=== PATIENT | male | born 1955 | race Caucasian/White ===

== ENCOUNTER → 2017-05-05 | Outpatient (CLI) | payer SELFPAY ==
[2017-05-05 07:21] LABS: Basophils % (A) 1 %; CH 33.6; CHCM 34.2; Eosinophils # (A) 0.3 k/uL (0-0.7); Eosinophils % (A) 3 %; HCT 50.8 % (39.0-53.0); HDW 2.87; HGB 16.4 gm/dL (13.0-17.5); Luc # (Auto) 0.15; Luc % (Auto) 2; Lymphocytes # (A) 1.5 k/uL (1.0-4.8); Lymphocytes % (A) 15 %; MCHC 32.3 g/dL (31.0-37.0); MCV 99.1 fL (80.0-100.0); Macrocytosis Slight; Mean Platelet Volume 7.4; Monocytes # (A) 0.6 k/uL (0-1.0); Monocytes % (A) 6 %; Neutrophils # (A) 7.2 k/uL (1.3-7.7); Neutrophils % (A) 75 %; RBC 5.12 m/uL (4.30-5.90); RDW 15.1 % (11.5-15.5); WBC 9.7 k/uL (3.8-10.6)
[2017-05-05 08:05] LABS: ALT 55 U/L (21-72); AST 30 U/L (17-59); Alkaline Phosphatase 71 U/L (38-126); Anion Gap 10 mmol/L; Blood Urea Nitrogen 22 mg/dL (9-20); Calcium 9.3 mg/dL (8.4-10.2); Carbon Dioxide 26 mmol/L (22-30); Chloride 106 mmol/L (98-107); Cholesterol 166 mg/dL (<200); Creatine Kinase 58 U/L (55-170); Glucose 169 mg/dL (74-99); HDL Cholesterol 36 mg/dL (40-60); Non-African American GFR(MDRD) >60 (>60 ml/min/1.73 sqM); Sodium 142 mmol/L (137-145); Total Protein 7.3 g/dL (6.3-8.2)
== END | disposition home or self-care (01) ==
LOC: LABWHC1 07:05
PROVIDERS: ATTEND Family Medicine
DX: E78.5 Hyperlipidemia, unspecified (principal); E11.9 Type 2 diabetes mellitus without complications
CPT/HCPCS: 36415; 80053; 80061; 82550; 83525; 84681; 85025

== ENCOUNTER → 2017-12-01 | Outpatient (CLI) | payer BC ==
[2017-12-01 09:00] LABS: Basophils # (A) 0.1 k/uL (0-0.2); Basophils % (A) 1 %; Eosinophils # (A) 0.2 k/uL (0-0.7); Eosinophils % (A) 2 %; HCT 49.6 % (39.0-53.0); HGB 16.3 gm/dL (13.0-17.5); Lymphocytes # (A) 1.3 k/uL (1.0-4.8); Lymphocytes % (A) 14 %; MCH 30.3 pg (25.0-35.0); MCHC 32.9 g/dL (31.0-37.0); MCV 92.1 fL (80.0-100.0); Monocytes # (A) 0.5 k/uL (0-1.0); Monocytes % (A) 6 %; Neutrophils # (A) 6.7 k/uL (1.3-7.7); Neutrophils % (A) 76 %; Platelet Count 207 k/uL (150-450); RBC 5.38 m/uL (4.30-5.90); RDW 13.8 % (11.5-15.5); WBC 8.8 k/uL (3.8-10.6)
[2017-12-01 09:57] LABS: ALT 49 U/L (21-72); AST 27 U/L (17-59); Albumin 4.4 g/dL (3.5-5.0); Alkaline Phosphatase 72 U/L (38-126); Anion Gap 15 mmol/L; Blood Urea Nitrogen 24 mg/dL (9-20); Calcium 10.1 mg/dL (8.4-10.2); Carbon Dioxide 25 mmol/L (22-30); Chloride 106 mmol/L (98-107); Cholesterol 202 mg/dL (<200); Glucose 235 mg/dL (74-99); HDL Cholesterol 34 mg/dL (40-60); Potassium 4.9 mmol/L (3.5-5.1); Sodium 146 mmol/L (137-145); Total Bilirubin 0.9 mg/dL (0.2-1.3); Total Protein 7.5 g/dL (6.3-8.2); Triglycerides 501 mg/dL (<150)
[2017-12-01 10:25] LABS: Prostate Specific Antigen 0.95 ng/mL (0.00-4.00)
[2017-12-01 19:07] LABS: Hepatitis A Antibody IgM Non-Reactive (Non-Reactive); Hepatitis B Core IgM Non-Reactive (Non-Reactive)
== END | disposition home or self-care (01) ==
LOC: LABWHC1 08:05
PROVIDERS: ATTEND Family Medicine
DX: Z00.00 Encounter for general adult medical examination without abnormal findings (principal); Z12.5 Encounter for screening for malignant neoplasm of prostate; Z11.59 Encounter for screening for other viral diseases
CPT/HCPCS: 36415; 80053; 80061; 80074; 84153; 84443; 85025

== ENCOUNTER → 2018-08-07 | Outpatient (CLI) | payer BC ==
--- NOTE | 2018-08-07 10:50 | US ---
EXAMINATION TYPE: US scrotum with doppler. Grayscale and color Doppler Duplex imaging performed of t javed scrotum. DATE OF EXAM: 08/07/2018 COMPARISON: NONE CLINICAL HISTORY: N50.89 Testicular Pain. left pain x 2 weeks then went away. Week later came back. No swelling. No injury EXAM MEASUREMENTS: TESTICLES: Right Testicle: 3.7 x 2.6 x 2.0 cm Left Testicle: 3.1 x 2.8 x 2.4 cm EPIDIDYMIS HEAD: Right Epididymis: 0.9 x 1.0 x 0.6 cm Left Epididymis: 0.9 x 1.3 x 0.7 cm Doppler performed to assess for testicular vascularity; good bilateral color flow and waveforms are s een. Presence of hydroceles: small bilateral Presence of varicoceles: no Bilateral epididymis appear heterogenous. Small bilateral scrotal fluid hydroceles are present. Satisfactory blood flow to both testicles is se en. Comparison views shows symmetric flow bilaterally. IMPRESSION: No suspicious decreased or increased blood flow to left testicle identified.
== END | disposition home or self-care (01) ==
LOC: RADUSWWP 09:54
PROVIDERS: ATTEND Physician Assistant
DX: N50.89 Other specified disorders of the male genital organs (principal)
CPT/HCPCS: 76870; 93975

== ENCOUNTER → 2018-08-31 | Outpatient (CLI) | payer BC ==
[2018-08-31 08:28] LABS: Basophils # (A) 0.1 k/uL (0-0.2); Basophils % (A) 1 %; Eosinophils # (A) 0.2 k/uL (0-0.7); Eosinophils % (A) 3 %; HCT 46.8 % (39.0-53.0); HGB 15.1 gm/dL (13.0-17.5); Lymphocytes # (A) 1.1 k/uL (1.0-4.8); Lymphocytes % (A) 13 %; MCH 30.7 pg (25.0-35.0); MCHC 32.2 g/dL (31.0-37.0); MCV 95.5 fL (80.0-100.0); Mean Platelet Volume 6.4; Monocytes # (A) 0.4 k/uL (0-1.0); Monocytes % (A) 5 %; Neutrophils # (A) 6.5 k/uL (1.3-7.7); Neutrophils % (A) 76 %; Platelet Count 191 k/uL (150-450); RDW 13.8 % (11.5-15.5); WBC 8.5 k/uL (3.8-10.6)
[2018-08-31 17:07] LABS: Albumin 4.2 g/dL (3.80-4.90); Albumin/Globulin Ratio 1.75 (1.20-2.10); Anion Gap 7.4 mmol/L (4.00-12.00); Calcium 9.3 mg/dL (8.7-10.3); Carbon Dioxide 28.6 mmol/L (21.6-31.8); Globulin 2.4 g/dL (1.6-3.3); LDL Cholesterol,Calculated 57.8 mg/dL (0.0-131.0); Potassium 4.6 mmol/L (3.5-5.5); Total Bilirubin 0.9 mg/dL (0.2-1.2); Total Protein 6.6 g/dL (6.2-8.2); VLDL Calculation 69.2 mg/dL (5.00-40.00)
== END | disposition home or self-care (01) ==
LOC: LABWHC1 08:03
PROVIDERS: ATTEND Family Medicine
DX: E78.5 Hyperlipidemia, unspecified (principal)
CPT/HCPCS: 36415; 80053; 80061; 82550; 85025

== ENCOUNTER → 2019-01-18 | Outpatient (CLI) | payer BC ==
[2019-01-18 08:55] LABS: Basophils % (A) 1 %; Eosinophils # (A) 0.2 k/uL (0-0.7); Eosinophils % (A) 2 %; HCT 44.2 % (39.0-53.0); HGB 14.3 gm/dL (13.0-17.5); Lymphocytes # (A) 1.3 k/uL (1.0-4.8); Lymphocytes % (A) 15 %; MCH 30.7 pg (25.0-35.0); MCHC 32.4 g/dL (31.0-37.0); MCV 94.8 fL (80.0-100.0); Mean Platelet Volume 7.3; Monocytes # (A) 0.6 k/uL (0-1.0); Monocytes % (A) 6 %; Neutrophils # (A) 6.6 k/uL (1.3-7.7); Neutrophils % (A) 75 %; Platelet Count 195 k/uL (150-450); RBC 4.66 m/uL (4.30-5.90); RDW 15.1 % (11.5-15.5); WBC 8.8 k/uL (3.8-10.6)
[2019-01-18 16:53] LABS: Albumin 4.2 g/dL (3.80-4.90); Albumin/Globulin Ratio 1.75 (1.60-3.17); Anion Gap 6.5 mmol/L (4.00-12.00); Calcium 9.6 mg/dL (8.7-10.3); Carbon Dioxide 27.5 mmol/L (21.6-31.8); Globulin 2.4 g/dL (1.6-3.3); LDL Cholesterol,Calculated 56.2 mg/dL (0.0-131.0); Potassium 4.7 mmol/L (3.5-5.5); Total Bilirubin 0.9 mg/dL (0.2-1.2); Total Protein 6.6 g/dL (6.2-8.2); VLDL Calculation 50.8 mg/dL (5.00-40.00)
== END ==
LOC: LABWHC1 08:03
PROVIDERS: ATTEND Family Medicine
DX: E78.5 Hyperlipidemia, unspecified (principal); Z12.5 Encounter for screening for malignant neoplasm of prostate
CPT/HCPCS: 80061; 80053; 82550; 85025; 36415; G0103

== ENCOUNTER → 2021-02-01 | Outpatient (CLI) | payer MEDICARE ==
--- NOTE | 2021-02-01 15:34 | US ---
EXAMINATION TYPE: US kidneys/renal and bladder DATE OF EXAM: 02/01/2021 COMPARISON: US 01/12/14 CLINICAL HISTORY: N18.32 stage 3b chronic kidney disease. EXAM MEASUREMENTS: Right Kidney: 10.5 x 5.8 x 4.9 cm Left Kidney: 12.5 x 6.4 x 5.3 cm Post Void Residual Volume: 164.5 mL Right Kidney: No hydronephrosis or masses seen, small lateral cyst = 1.6 x 1.4 x 0.9 cm Left Kidney: No hydronephrosis or masses seen Bladder: wnl Bilateral Jets seen: Yes Normal Post Void Residual: No There is no evidence for hydronephrosis at this point in time. No nephrolithiasis is seen. No ellen s are identified. The urinary bladder is anechoic. Bilateral ureteral jets are seen. Patient tried, but unable to void. IMPRESSION: Likely right renal cyst.
== END | disposition home or self-care (01) ==
LOC: RADUSWWP 14:44
PROVIDERS: ATTEND Internal Medicine
DX: N18.32 Chronic kidney disease, stage 3b (principal)
CPT/HCPCS: 76770

== ENCOUNTER → 2022-04-12 | Outpatient (CLI) | payer MEDICARE ==
--- NOTE | 2022-04-12 10:30 | XR ---
EXAMINATION TYPE: XR bone survey complete DATE OF EXAM: 04/12/2022 COMPARISON: NONE HISTORY: MONOCLONAL GAMMOPATHY Bony calvarium : 2 views of the bony calvarium demonstrate. Hyperostosis noted. No definite intraoss eous lesion Spine: Two views of the cervical, thoracic and lumbar spines are submitted. There is hypertrophic an d degenerative changes of the cervical, thoracic and lumbar spine. Retrolisthesis of the millimeters C4 relative to C5. Multilevel facet arthropathy. Large osteophyte on the left L3-L4 and hypertrophic spurring seen throughout the lumbar spine PELVIS: Single view of the pelvis demonstrates. Severe degenerative changes lower lumbar spine. Ther e is moderate severe arthropathy and is correlated with femoral acetabular. No osseous lesions seen. Soft tissue calcifications noted. Spina bifida occulta of the coccyx noted. UPPER EXTREMITIES: Two views of the upper extremities. Calcifications along the humeral head are ofte n associated with calcific tendinosis of the rotator cuff. No intraosseous lesion seen. AC joint arth ropathy noted. LOWER EXTREMITIES: 2 views of the lower extremities. There is concentric narrowing of the hip joints with hypertrophic change of the acetabulum. There is severe arthropathy of the medial compartment of the right knee. Soft tissue and vascular calcifications are noted. Suspect bilateral femoral acetabu lar impingement. Question small lucent subcentimeter lesion involving the proximal diaphysis of the l eft femur. IMPRESSION: 1. Findings suspicious for a small subcentimeter lucent lesion proximal diaphysis left femur. 2. Correlate for AC joint arthropathy at ossific tendinosis of the rotator cuff bilaterally 3. Severe hypertrophic and degenerative changes with facet arthropathy involving the cervical, thorac ic and lumbar spine report for bilateral hip arthropathy correlate for femoral acetabular impingement
== END | disposition home or self-care (01) ==
LOC: RADXRMAIN 09:29
PROVIDERS: ATTEND Internal Medicine Hematology & Oncology
DX: M47.812 Spondylosis without myelopathy or radiculopathy, cervical region (principal); M47.814 Spondylosis without myelopathy or radiculopathy, thoracic region; M47.816 Spondylosis without myelopathy or radiculopathy, lumbar region; M16.0 Bilateral primary osteoarthritis of hip; M19.011 Primary osteoarthritis, right shoulder; M19.012 Primary osteoarthritis, left shoulder
CPT/HCPCS: 77075

== ENCOUNTER → 2022-10-27 | Outpatient (CLI) | payer MEDICARE ==
--- NOTE | 2022-10-27 11:28 | US ---
EXAMINATION TYPE: US carotid duplex BILAT DATE OF EXAM: 10/27/2022 COMPARISON: NONE CLINICAL HISTORY: M85.88. TECHNIQUE: Carotid duplex ultrasound examination. Indirect Doppler criteria was utilized. FINDINGS: EXAM MEASUREMENTS: RIGHT: Peak Systolic Velocity (PSV) cm/sec ----- Right CCA: 89.7 ----- Right ICA: 92.4 ----- Right ECA: 165 ICA/CCA ratio: 1.0 RIGHT: End Diastole cm/sec ----- Right CCA: 21.1 ----- Right ICA: 25.2 ----- Right ECA: 16.5 LEFT: Peak Systolic Velocity (PSV) cm/sec ----- Left CCA: 84.9 ----- Left ICA: 130.2 ----- Left ECA: 135 ICA/CCA ratio: 1.5 LEFT: End Diastole cm/sec ----- Left CCA: 25.4 ----- Left ICA: 22.0 ----- Left ECA: 15.6 VERTEBRALS (direction of flow): Right Vertebral: Antegrade Left Vertebral: Antegrade Rhythm: Normal [employer] NOTES: Technically difficult study, patient has large thick neck. Mild velocity increase seen in bilateral ECA's and left ICA. IMPRESSION: Technically difficult exam. 1. Less than 50% stenosis of the left internal carotid artery at its origin suggested. 2. No clinically significant stenosis of the right internal carotid artery. Criteria for Assigning % of Stenosis / Diameter reduction (Estimation based on the indirect measurements of the internal carotid artery velocities (ICA PSV). 1. Normal (no stenosis)=ICA PSV < 125 cm/s: ratio < 2.0: ICA EDV<40 cm/s. 2. Less than 50% stenosis=ICA PSV < 125 cm/s: ratio < 2.0: ICA EDV<40 cm/s. 3. 50 to 69% stenosis=ICA PSV of 125 to 230 cm/s: ration 2.0 ? 4.0: ICA EDV 40-100 cm/s. 4. Greater than 70% stenosis to near occlusion= ICA PSV > 230 cm/s: ratio > 4.0: ICA EDV > 100 cm/s. 5. Near occlusion= ICA PSV velocities may be low or undetectable: variable ratio and ICA EDV. 6. Total occlusion=unable to detect flow.
== END | disposition home or self-care (01) ==
LOC: RADUSWWP 10:30
PROVIDERS: ATTEND Family Medicine
DX: I65.22 Occlusion and stenosis of left carotid artery (principal); R09.89 Other specified symptoms and signs involving the circulatory and respiratory systems
CPT/HCPCS: 93880

== ENCOUNTER → 2023-01-24 | Outpatient (CLI) | payer MEDICARE ==
--- NOTE | 2023-01-24 15:38 | US ---
EXAMINATION TYPE: US arterial LE multi level DATE OF EXAM: 01/24/2023 7:45 AM CLINICAL INDICATION: Male, 67 years old with history of I73.9 PERIPHERAL VASCULAR DISEASE, UNSPECIFIE D; PVD toe pain History of: Smoker: Current Smoker Hypertension: Yes Diabetic: Yes Hyperlipidemia: Yes TIA/CVA: No Previous Vascular Surgery: No CAD: No CA: No Vascular Ulcers: No Claudication: No Gangrene: No Doppler Waveforms: Right: Triphasic waveforms are within the popliteal and posterior tibial arteries with biphasic wavef orms in the dorsalis pedis and monophasic waveform in the digital artery. Left: Triphasic waveforms within the popliteal posterior tibial and dorsalis pedis arteries. There ap pears to be monophasic waveforms in the left digital artery. Right Brachial Pressure: 146 Left Brachial Pressure: 140 Ankle-Brachial Indices: Right: 1.29 Left: 1.24 Toe Brachial Indices: Right: 1.20 Left: 1.06 IMPRESSION: 1. No significant flow-limiting stenosis.
== END | disposition home or self-care (01) ==
LOC: RADUSWWP 07:08
PROVIDERS: ATTEND Podiatrist Foot & Ankle Surgery
DX: I73.9 Peripheral vascular disease, unspecified (principal)
CPT/HCPCS: 93923

== ENCOUNTER → 2024-02-18 | Outpatient (CLI) | payer MEDICARE ==
[2024-02-18 16:55] LABS: Basophils % (A) 0 %; Eosinophils # (A) 0.2 k/uL (0-0.7); Eosinophils % (A) 2 %; HCT 46.3 % (39.0-53.0); HGB 15.1 gm/dL (13.0-17.5); Lymphocytes # (A) 1.6 k/uL (1.0-4.8); Lymphocytes % (A) 15 %; MCHC 32.6 g/dL (31.0-37.0); Mean Platelet Volume 7.4; Monocytes # (A) 0.5 k/uL (0-1.0); Monocytes % (A) 5 %; Neutrophils # (A) 8.5 k/uL (1.3-7.7); Neutrophils % (A) 77 %; Platelet Count 219 k/uL (150-450); RBC 4.72 m/uL (4.30-5.90); RDW 14.2 % (11.5-15.5)
[2024-02-18 17:08] LABS: African American GFR (CKD) 70 (>60 ml/min/1.73 sqM); Albumin/Globulin Ratio 1.2; Alkaline Phosphatase 65 U/L (38-126); Anion Gap 6 mmol/L; Blood Urea Nitrogen 37 mg/dL (9-20); Calcium 9.7 mg/dL (8.4-10.2); Carbon Dioxide 28 mmol/L (22-30); Chloride 110 mmol/L (98-107); Globulin 3.7 g/dL; Glucose 201 mg/dL (74-99); Non-African American GFR(CKD) 60 (>60 ml/min/1.73 sqM); Sodium 144 mmol/L (137-145)
[2024-02-18 17:18] LABS: ALT 23 U/L (4-49); AST 42 U/L (17-59); Potassium 4.8 mmol/L (3.5-5.1)
[2024-02-18 17:19] LABS: Albumin 4.6 g/dL (3.5-5.0); Total Protein 8.3 g/dL (6.3-8.2)
--- NOTE | 2024-02-18 18:14 | CT ---
EXAMINATION TYPE: CT abdomen pelvis w con DATE OF EXAM: 02/18/2024 COMPARISON: None INDICATION: LLQ abdominal pain x 2 weeks DLP: 1627.8 mGycm, Automated exposure control for dose reduction was used. CONTRAST: 80 mL of Isovue 300. Study performed without Oral Contrast TECHNIQUE: Axial images were obtained from above the diaphragm to the pubic rami in the axial plane a t 5 mm thick sections. Reconstructed images are reviewed on the computer in the coronal plane. Lanette pheral edges of the lower abdomen and pelvis extend out of the [id number] FINDINGS: Limited CT sections are obtained the lung bases. The lung bases are clear. CT ABDOMEN: Liver: Multiple cysts superiorly scattered throughout the liver. The largest near the tip of the righ t lobe of the liver measures 4.5 cm. Spleen: Normal Pancreas: Normal Adrenal glands: The adrenal glands are normal. Gallbladder: Not visualized Kidneys: No masses are evident. No hydronephrosis is present. Small cortical renal cysts are presen t on the right delayed images were obtained through the kidneys. Aorta: Vascular calcification is within the aorta. Inferior vena cava: Normal. CT PELVIS: Paraumbilical hernia containing mesenteric fat is present. This has an opening of 2.3 cm. Loops of bowel within the abdomen and pelvis are normal. This study is lateral contrast limits tabitha wel evaluation. Appendix: Normal as visualized. Urinary bladder: Normal. Genitourinary structures: Prostate is prominent. Osseous structures: No suspicious lytic or sclerotic lesions. Endplate degenerative changes are throu gh the lumbar spine. There is degenerative disc changes within the lower thoracic spine. IMPRESSION: 1. Hepatic cysts. 2. Couple of small cortical renal cysts right kidney. 3. Periumbilical fat-containing hernia 4. No suspicious abnormalities to account for left lower quadrant pain1
== END | disposition home or self-care (01) ==
LOC: RADCTMAIN 15:57
PROVIDERS: ATTEND Family Medicine
DX: K76.89 Other specified diseases of liver (principal); N28.1 Cyst of kidney, acquired; K46.9 Unspecified abdominal hernia without obstruction or gangrene
CPT/HCPCS: 80053; 85025; 74177; 36415; Q9967

== ENCOUNTER 2024-04-23 06:35 | Day surgery (SDC) | payer MEDICARE ==
[~2024-04-23 06:35] MED LIST: LIDOCAINE 1% (10MG/ML) FOR IV START INTRADERMA PRN
[2024-04-23 07:46] VITALS: TEMP 96.8
[2024-04-23] MEDS: LACTATED RINGERS 1,000 ML IV SCH (07:48)
[2024-04-23 07:51] LABS: Glucose,Whole Blood 135 mg/dL (70-110)
[2024-04-23] MEDS: IV FLUID CONTINUATION 1,000 ML IV ONE (07:52)
[2024-04-23] MEDS ORDERED: PROPOFOL 10 MG/ML 20 ML VIAL IV ONE (07:55)
[2024-04-23] MEDS ORDERED: LIDOCAINE 1% INJ 10MG/ML (20 ML MDV) ONE (07:55)
--- NOTE | 2024-04-23 08:18 | P.PCN ---
Date of Procedure: 04/23/24 Procedure(s) Performed: Brief history: Patient is a pleasant 68-year-old white male scheduled for an elective upper endoscopy as well as colonoscopy as a part of evaluation of right-sided abdominal pain for the last 2 months duration. He has abdominal bloating, excessive belching and change in bowel habits Procedure performed: Esophagogastroduodenoscopy with biopsy Colonoscopy with snare polypectomy Preoperative diagnosis: Right-sided abdominal pain Excessive belching Abdominal bloating and change in bowel habits Anesthesia: MAC Procedure: After informed consent was obtained from the patient was brought into the endoscopy unit and IV sedation was administered by anesthesia under continuous monitoring. Initially upper endoscopy was done. The Olympus GF 160 video endoscope was inserted inserted into the mouth and esophagus intubated without any difficulty and was gradually advanced into the stomach and duodenum and carefully examined. The bulb and second part of the duodenum appeared normal. Biopsies were done from the duodenum to rule out celiac disease. The scope was then withdrawn into the stomach adequately insufflated with air and upon careful examination the antrum had moderate to severe gastritis and biopsies were done from this area. Mucosa of the body, cardia and fundus appeared normal. The scope was then withdrawn into the esophagus. The GE junction was located at 40 cm to the incisors. It appeared regular with no erythema erosions or ulcerations. Rest of the esophagus appeared normal. Patient tolerated the procedure well. At this time the patient continued to remain sedation. Initial digital rectal examination was normal. Olympus CF 160 video colonoscope was then inserted into the rectum and gradually advanced to the cecum without any difficulty. Careful examination was performed as the scope was gradually being withdrawn. The prep was excellent. The cecum, appeared normal. The ascending colon there was a 5 mm and 1 cm polyp removed by snare polypectomy. Rest of the ascending colon, transverse colon, descending colon, sigmoid colon and rectum appeared normal. In the sigmoid colon there was another 5 mm polyp removed by cold snare polypectomy. Retroflexion was performed in the rectum and grade 2 internal hemorrhoids were noted. Patient tolerated the procedure well. Impression: 1. Upper endoscopy revealed moderate to severe antral gastritis but no evidence of esophagitis or peptic ulcer disease 2. Colonoscopy revealed 5 mm and 1 cm ascending colon polyp, 5 mm sigmoid colon polyp status post snare polypectomy. Grade 2 internal hemorrhoids Recommendations: Findings of this examination were discussed with the patient as well as his family. He was advised to follow-up with the biopsy results. If the biopsy reveals adenoma, recommended repeat colonoscopy in 3 years. In the meantime he will be started on omeprazole 20 mg daily and follow antireflux measures
[2024-04-23 08:46] VITALS: BP 143/84; PULSE 63; RESP 18
== END 2024-04-23 09:00 | disposition home or self-care (01) ==
LOC: ORWHC2ENDO 06:35
PROVIDERS: ATTEND Internal Medicine Gastroenterology
DX: D12.2 Benign neoplasm of ascending colon (principal); D12.5 Benign neoplasm of sigmoid colon; K31.9 Disease of stomach and duodenum, unspecified; K64.1 Second degree hemorrhoids; K29.70 Gastritis, unspecified, without bleeding
CPT/HCPCS: 43239; 45385; 88305; 88342

== ENCOUNTER 2024-12-24 10:59 | Inpatient (IN) | payer MEDICARE ==
--- NOTE | 2024-12-24 12:14 | ED ---
General Adult HPI - General Chief complaint: Skin/Abscess/Foreign Body Stated complaint: groin wound Time Seen by Provider: 12/24/24 11:17 Source: patient Mode of arrival: ambulatory Limitations: no limitations - History of Present Illness Initial comments: 69-year-old male presents to the emergency department for evaluation of scrotal pain and swelling. Patient states that he noticed some discomfort and a lump on Sunday. He went to the walk-in clinic and was prescribed Bactrim. He has been taking this as prescribed since then. He notes that the swelling in his scrotum has gotten worse along with this there is an open wound with drainage that the reports is malodorous. He went for an outpatient ultrasound today but was unable to get the results. He states that due to the pain and the discharge he presented to the emergency department. He denies any fever but admits to chills. Denies any nausea, vomiting. Admits to urinary frequency which he states is typical for him. He is a diabetic on Farxiga - Related Data Home Medications Medication Instructions Recorded Confirmed Cholecalciferol (Vitamin D3) 125 mcg PO DAILY 04/17/24 12/24/24 [Vitamin D3 (125 MCG = 5,000 IU)] Evolocumab [Repatha Sureclick] 140 mg SQ Q30D 04/17/24 12/24/24 Furosemide [Lasix] 40 mg PO DAILY 04/17/24 12/24/24 Insulin Glargine,Hum.rec.anlog 40 units SQ DAILY 04/17/24 12/24/24 [Naga Bennett] Losartan Potassium 100 mg PO DAILY 04/17/24 12/24/24 Metoprolol Tartrate 25 mg PO BID 04/17/24 12/24/24 allopurinoL [Zyloprim] 200 mg PO HS 04/17/24 12/24/24 Acetaminophen [Tylenol Arthritis] 1,300 mg PO BID 12/24/24 12/24/24 Dapagliflozin Propanediol [Farxiga] 10 mg PO HS 12/24/24 12/24/24 Famotidine 20 mg PO HS 12/24/24 12/24/24 Omeprazole 20 mg PO HS 12/24/24 12/24/24 Sulfamethox-Tmp 800-160Mg [Bactrim 1 tab PO Q12HR 12/24/24 12/24/24 DS 800-160 mg] Tirzepatide [Mounjaro] 10 mg SQ TH 12/24/24 12/24/24 Vit C/E/Zn/Coppr/Lutein/Zeaxan 1 cap PO BID 12/24/24 12/24/24 [Preservision Areds 2 Softgel] Allergies Allergy/AdvReac Type Severity Reaction Status Date / Time No Known Allergies Allergy Verified 12/25/24 15:02 Review of Systems ROS Statement: Those systems with pertinent positive or pertinent negative responses have been documented in the HPI. ROS Other: All systems not noted in ROS Statement are negative. Past Medical History Past Medical History: Diabetes Mellitus, Hypertension Additional Past Medical History / Comment(s): skin ca; stage 3 kidney failure History of Any Multi-Drug Resistant Organisms: None Reported Past Surgical History: Cholecystectomy Additional Past Surgical History / Comment(s): left hand surg, colonoscopy Past Anesthesia/Blood Transfusion Reactions: Postoperative Nausea & Vomiting (PONV) Past Psychological History: No Psychological Hx Reported Smoking Status: Current every day smoker Past Alcohol Use History: Rare General Exam Limitations: no limitations General appearance: alert, in no apparent distress Head exam: Present: atraumatic, normocephalic, normal inspection Eye exam: Present: normal appearance, PERRL, EOMI. Absent: scleral icterus, conjunctival injection, periorbital swelling ENT exam: Present: normal exam, mucous membranes moist Neck exam: Present: normal inspection. Absent: tenderness, meningismus, lymphadenopathy Respiratory exam: Present: normal lung sounds bilaterally. Absent: respiratory distress, wheezes, rales, rhonchi, stridor Cardiovascular Exam: Present: regular rate, normal rhythm, normal heart sounds. Absent: systolic murmur, diastolic murmur, rubs, gallop, clicks Neurological exam: Present: alert, oriented X3 Psychiatric exam: Present: normal affect, normal mood Skin exam: Present: warm, dry, erythema (Erythema and edema to the scrotum, purulent drainage from the left perineum). Absent: intact, normal color Course Vital Signs 12/24/24 12/24/24 12/24/24 11:02 14:09 14:43 Temperature 98 F Pulse Rate 85 71 103 H Respiratory 18 16 16 Rate Blood Pressure 155/73 153/75 137/75 O2 Sat by Pulse 98 96 98 Oximetry 12/24/24 12/24/24 12/24/24 15:02 20:00 22:20 Temperature 98.2 F 98.6 F Pulse Rate 70 71 77 Respiratory 22 18 18 Rate Blood Pressure 140/67 156/82 172/77 O2 Sat by Pulse 95 96 96 Oximetry 12/25/24 04:59 Temperature 97.6 F Pulse Rate 71 Respiratory 19 Rate Blood Pressure 152/79 O2 Sat by Pulse 97 Oximetry Medical Decision Making - Medical Decision Making Was pt. sent in by a medical professional or institution (DAPHNEY John, WEAPONS SPECIALIST, urgent care, hospital, or custodial...) When possible be specific @ -No Did you speak to anyone other than the patient for history (EMS, parent, family, police, friend...)? What history was obtained from this source @ -No Did you review nursing and triage notes (agree or disagree)? Why? @ -I reviewed and agree with nursing and triage notes Were old charts reviewed (outside hosp., previous admission, EMS record, old EKG, old radiological studies, urgent care reports/EKG's, custodial records)? Report findings @ -I reviewed the patient's outpatient ultrasound revealing no evidence of abnormal fluid collection, findings consistent with cellulitis Differential Diagnosis (chest pain, altered mental status, abdominal pain women, abdominal pain men, vaginal bleeding, weakness, fever, dyspnea, syncope, headache, dizziness, GI bleed, back pain, seizure, CVA, palpatations, mental health, musculoskeletal)? @ -Cellulitis, abscess, Drew's gangrene, necrotizing fasciitis, this list is not all inclusive EKG interpreted by me (3pts min.). @ -None X-rays interpreted by me (1pt min.). @ -None done CT interpreted by me (1pt min.). @ -CT of the pelvis shows no evidence of acute process U/S interpreted by me (1pt. min.). @ -None done What testing was considered but not performed or refused? (CT, X-rays, U/S, lab s)? Why? @ -None What meds were considered but not given or refused? Why? @ -None Did you discuss the management of the patient with other professionals (professionals i.e. DAPHNEY John, WEAPONS SPECIALIST, lab, RT, psych nurse, aids social worker, project manager retail, teacher, money position officer, geriatric case manager)? Give summary @ -Management was discussed with [facility] who was accepting of the admission Was smoking cessation discussed for >3mins.? @ -No Was critical care preformed (if so, how long)? @ -No Were there social determinants of health that impacted care today? How? (Homelessness, low income, unemployed, alcoholism, drug addiction, transportation, low edu. Level, literacy, decrease access to med. care, skilled nursing, rehab)? @ -No Was there de-escalation of care discussed even if they declined (Discuss DNR or withdrawal of care, Hospice)? DNR status @ -No What co-morbidities impacted this encounter? (DM, HTN, Smoking, COPD, CAD, Cancer, CVA, ARF, Chemo, Hep., AIDS, mental health diagnosis, sleep apnea, morbid obesity)? @ -Diabetes Was patient admitted / discharged? Hospital course, mention meds given and [place], prescriptions, significant lab abnormalities, going to OR and other pertinent info. @ -Admitted. Patient presented the emergency department for scrotal swelling and drainage from wound. Patient underwent outpatient ultrasound earlier today revealing no evidence of fluid collection, there is findings consistent with cellulitis. Patient presented the emergency department for pain and drainage to the area. Laboratory studies obtained revealing no significant leukocytosis, No significant lactic acidosis. Mild elevation in BUN/creatinine. The patient is also hyperglycemic with a blood glucose of 245; UA shows 4+ glucose, 1+ protein, no evidence of infectious process. CT of the pelvis was obtained revealing no acute process. Patient started on IV antibiotics. He will be admitted to the hospital for continuation of this treatment. He is understanding agreeable with plan. Case discussed with [facility] who is accepting of the admission. Case discussed with Dr. Cesar Undiagnosed new problem with uncertain prognosis? @ -No Drug Therapy requiring intensive monitoring for toxicity (Heparin, Nitro, Insulin, Cardizem)? @ -No Were any procedures done? @ -No Diagnosis/symptom? @ -Scrotal cellulitis, abscess Acute, or Chronic, or Acute on Chronic? @ -Acute Uncomplicated (without systemic symptoms) or Complicated (systemic symptoms)? @ -Uncomplicated Side effects of treatment? @ -No Exacerbation, Progression, or Severe Exacerbation? @ -No Poses a threat to life or bodily function? How? (Chest pain, [place], [place], pneumonia, PE, COPD, DKA, ARF, appy, cholecystitis, CVA, Diverticulitis, Homicidal, Suicidal, threat to staff... and all critical care pts) @ -No - Lab Data Result diagrams: 12/26/24 06:07 12/26/24 06:07 Lab Results 12/24/24 12/24/24 12/24/24 Range/Units 12:48 12:48 12:48 WBC 10.02 H (4.50-10.00) 10*3/uL RBC 4.25 L (4.40-5.60) 10*6/uL Hgb 13.8 (13.0-17.0) g/dL Hct 40.3 (39.6-50.0) % MCV 94.8 (80.0-97.0) fL MCH 32.5 H (27.0-32.0) pg MCHC 34.2 (32.0-37.0) g/dL Plt Count 170 (140-440) 10*3/uL MPV 9.4 L (9.5-12.2) fL Immature Gran % (Auto) 0.5 % Neutrophils % 77.3 % Lymphocytes % 14.4 % Monocytes % 6.1 % Eosinophils % 1.3 % Basophils % 0.4 % Immature Gran # 0.05 H (0.00-0.04) 10*3/uL Neutrophils # 7.75 H (1.80-7.70) 10*3/uL Lymphocytes # 1.44 (0.90-5.00) 10*3/uL Monocytes # 0.61 (0.20-1.00) 10*3/uL Eosinophils # 0.13 (0.04-0.35) 10*3/uL Basophils # 0.04 (0.00-0.10) 10*3/uL Sodium 142 (137-145) mmol/L Potassium 4.4 (3.5-5.1) mmol/L Chloride 111 H (98-107) mmol/L Carbon Dioxide 25 (22-30) mmol/L Anion Gap 6 mmol/L BUN 34 H (9-20) mg/dL Creatinine 1.52 H (0.66-1.25) mg/dL Est GFR (CKD-EPI)AfAm 53 (>60 ml/min/1.73 sqM) Est GFR (CKD-EPI)NonAf 46 (>60 ml/min/1.73 sqM) Glucose 245 H (74-99) mg/dL Plasma Lactic Acid Clint 1.6 (0.7-2.0) mmol/L Calcium 8.9 (8.4-10.2) mg/dL Total Bilirubin 0.6 (0.2-1.3) mg/dL AST 14 L (17-59) U/L ALT 14 (4-49) U/L Alkaline Phosphatase 76 (38-126) U/L C-Reactive Protein 6.5 H (<1.0) mg/dL Total Protein 6.6 (6.3-8.2) g/dL Albumin 3.7 (3.5-5.0) g/dL Urine Color Urine Appearance (Clear) Urine pH (5.0-8.0) Ur Specific [place] (1.001-1.035) Urine Protein (Negative) Urine Glucose (UA) (Negative) Urine Ketones (Negative) Urine Blood (Negative) Urine Nitrite (Negative) Urine Bilirubin (Negative) Urine Urobilinogen (<2.0) mg/dL Ur Leukocyte Esterase (Negative) Urine RBC (0-5) /hpf Urine WBC (0-5) /hpf / Range/Units 12:48 WBC (4.50-10.00) 10*3/uL RBC (4.40-5.60) 10*6/uL Hgb (13.0-17.0) g/dL Hct (39.6-50.0) % MCV (80.0-97.0) fL MCH (27.0-32.0) pg MCHC (32.0-37.0) g/dL Plt Count (140-440) 10*3/uL MPV (9.5-12.2) fL Immature Gran % (Auto) % Neutrophils % % Lymphocytes % % Monocytes % % Eosinophils % % Basophils % % Immature Gran # (0.00-0.04) 10*3/uL Neutrophils # (1.80-7.70) 10*3/uL Lymphocytes # (0.90-5.00) 10*3/uL Monocytes # (0.20-1.00) 10*3/uL Eosinophils # (0.04-0.35) 10*3/uL Basophils # (0.00-0.10) 10*3/uL Sodium (137-145) mmol/L Potassium (3.5-5.1) mmol/L Chloride (98-107) mmol/L Carbon Dioxide (22-30) mmol/L Anion Gap mmol/L BUN (9-20) mg/dL Creatinine (0.66-1.25) mg/dL Est GFR (CKD-EPI)AfAm (>60 ml/min/1.73 sqM) Est GFR (CKD-EPI)NonAf (>60 ml/min/1.73 sqM) Glucose (74-99) mg/dL Plasma Lactic Acid Clint (0.7-2.0) mmol/L Calcium (8.4-10.2) mg/dL Total Bilirubin (0.2-1.3) mg/dL AST (17-59) U/L ALT (4-49) U/L Alkaline Phosphatase (38-126) U/L C-Reactive Protein (<1.0) mg/dL Total Protein (6.3-8.2) g/dL Albumin (3.5-5.0) g/dL Urine Color Colorless Urine Appearance Clear (Clear) Urine pH 6.0 (5.0-8.0) Ur Specific [place] 1.023 (1.001-1.035) Urine Protein 1+ H (Negative) Urine Glucose (UA) 4+ H (Negative) Urine Ketones Negative (Negative) Urine Blood Negative (Negative) Urine Nitrite Negative (Negative) Urine Bilirubin Negative (Negative) Urine Urobilinogen <2.0 (<2.0) mg/dL Ur Leukocyte Esterase Negative (Negative) Urine RBC <1 (0-5) /hpf Urine WBC 2 (0-5) /hpf Disposition Clinical Impression: Cellulitis, scrotum Disposition: ADMITTED IP TO THIS [facility] Condition: Stable Is patient prescribed a controlled substance at d/c from ED?: No
[2024-12-24] MEDS ORDERED: VANCOMYCIN IV PER PHARMACY 1 EACH MISC MISCELLANE PRN (12:40)
[2024-12-24] MEDS: LACTATED RINGERS 1,000 ML IV ONE (12:59)
[2024-12-24 13:10] LABS: Appearance,Urine Clear (Clear); Bilirubin,Urine Negative (Negative); Blood,Urine Negative (Negative); Color,Urine Colorless; Glucose,Urine (UA) 4+ (Negative); Ketones,Urine Negative (Negative); Leukocyte Esterase,Urine Negative (Negative); Nitrite,Urine Negative (Negative); Protein,Urine 1+ (Negative); RBC,Urine <1 /hpf (0-5); Specific Gravity,Urine 1.023 (1.001-1.035); Urobilinogen,Urine <2.0 mg/dL (<2.0); WBC,Urine 2 /hpf (0-5)
[2024-12-24 13:24] LABS: ALT 14 U/L (4-49); AST 14 U/L (17-59); African American GFR (CKD) 53 (>60 ml/min/1.73 sqM); Albumin 3.7 g/dL (3.5-5.0); Alkaline Phosphatase 76 U/L (38-126); Anion Gap 6 mmol/L; Blood Urea Nitrogen 34 mg/dL (9-20); Calcium 8.9 mg/dL (8.4-10.2); Carbon Dioxide 25 mmol/L (22-30); Chloride 111 mmol/L (98-107); Glucose 245 mg/dL (74-99); Non-African American GFR(CKD) 46 (>60 ml/min/1.73 sqM); Potassium 4.4 mmol/L (3.5-5.1); Sodium 142 mmol/L (137-145); Total Bilirubin 0.6 mg/dL (0.2-1.3); Total Protein 6.6 g/dL (6.3-8.2)
[2024-12-24 13:53] LABS: Basophils # (A) 0.04 10*3/uL (0.00-0.10); Basophils % (A) 0.4 %; Eosinophils # (A) 0.13 10*3/uL (0.04-0.35); Eosinophils % (A) 1.3 %; HCT 40.3 % (39.6-50.0); HGB 13.8 g/dL (13.0-17.0); Lymphocytes # (A) 1.44 10*3/uL (0.90-5.00); Lymphocytes % (A) 14.4 %; MCH 32.5 pg (27.0-32.0); MCHC 34.2 g/dL (32.0-37.0); MCV 94.8 fL (80.0-97.0); Mean Platelet Volume 9.4 fL (9.5-12.2); Monocytes # (A) 0.61 10*3/uL (0.20-1.00); Monocytes % (A) 6.1 %; Neutrophils # (A) 7.75 10*3/uL (1.80-7.70); Neutrophils % (A) 77.3 %; Platelet Count 170 10*3/uL (140-440); RBC 4.25 10*6/uL (4.40-5.60); RDW 13.4 % (11.5-14.5); WBC 10.02 10*3/uL (4.50-10.00)
[2024-12-24] MEDS: PIPERACILLIN-TAZOBACTAM 3.375 GM in SODIUM CHLORIDE 0.9% 100 ML IVPB STA (13:54)
[2024-12-24 14:04] LABS: C Reactive Protein 6.5 mg/dL (<1.0)
[2024-12-24] MEDS: VANCOMYCIN 1,500 MG in SODIUM CHLORIDE 0.9% 500 ML 500 ML IVPB ONE (15:08)
--- NOTE | 2024-12-24 15:12 | CT ---
CT pelvis with contrast HISTORY: Peroneal abscess concern for fourniers COMPARISON: CT abdomen and pelvis dated 424. TECHNIQUE: Multiple axial images of the pelvis following IV contrast inspiration. FINDINGS: There is mild prostatic hypertrophy. There is no pelvic adenopathy or mass. There is no abscess. The perianal soft tissues are normal. Visualized bowel loops are normal. No evidence of bowel obstruction. There is no free fluid in the pe lvis. CONCLUSION: 1. No acute changes within the pelvis. There is no evidence of perineal abscess. 2. Mild prostatic hypertrophy. [facility], Workstation: [facility], 12/24/2024 3:10 PM
[2024-12-24] MEDS ORDERED: ONDANSETRON 4 MG/2 ML VIAL IVP PRN (16:27)
[2024-12-24] MEDS ORDERED: NALOXONE 0.4 MG/ML 1 ML VIAL IV PRN (16:27)
[2024-12-24] MEDS ORDERED: MORPHINE SULFATE 4 MG/ML SYRINGE IV PRN (16:27)
[2024-12-24] MEDS ORDERED: HYDROcodone/APAP 5-325MG 1 EACH TAB PO PRN (17:47)
--- NOTE | 2024-12-24 18:00 | P.HPIM ---
History of Present Illness H&P Date: 12/24/24 69 year old M with PMH of DM, CKD, HTN, Gout, Gastritis, HLD presents to the ED. He reports scrotal "bubble" that started 1 week ago. The lump progressively grew to the size of his thumb over the past week. He did go to urgent care and received Bactrim which did not help his symptoms. He also underwent an US which showed concerns for cellulitis. Today, it became an open wound draining purulent discharge which prompted him to go to the ED. He denies any fever or chills, nausea or vomiting, cough, chest pain, shortness of breath, palpitations, changes in urination or bowel habits. In the ED he underwent extensive evaluation. BP 155/73, HR 85, T 98F, RR 18, 98% on RA. Labs significant for WBC 10.02, RBC 4.25, Cl 111, BUN 34, Cr 1.52, glu 245, AST 14, CRP 6.5. UA 1+ protein and 4+ glucose. CT pelvis no acute findings. Patient is started on Vancomycin and Zosyn and admitted for further workup and management. General: non toxic, no distress, appears at stated age Derm: warm, dry Head: atraumatic, normocephalic, symmetric Eyes: EOMI, no lid lag, anicteric sclera Mouth: no lip lesion, mucus membranes moist Cardiovascular: S1S2 reg, no murmur Lungs: Clear to auscultation bilaterally, no rhonchi, no rales , no accessory muscle use : Scrotal draining abscess left side with purulent discharge Ext: no gross muscle atrophy, no edema Neuro: no focal neuro deficits Psych: Alert and oriented. Based on my assessment of this patient, this patient meets a high complexity level of care. Scrotal abscess: Start Vancomycin and Zosyn. Wound culture collected with Dr. Fuchs. BLAS on CKD stage 2: Start NS at 100 cc/hr. Hold Farxiga, Losartan and Lasix for now. Repeat BMP in the AM. DM with hyperglycemia: Levemir 40 units QD. ISS with Accuchecks ACHS along with hypoglycemic precautions. Hypertension: Metoprolol 25 mg PO BID. Gout: Allopurinol 200 mg PO QHS. Gastritis: Pepcid 20 mg PO QHS. Prilosec 20 mg PO QHS. Dyslipidemia: On Repatha monthly. CODE STATUS: FULL CODE DVT Prophylaxis: Heparin GI Prophylaxis: Protonix + Pepcid Designated medical POA if patient is not able to make medical decisions for themselves: I have reviewed the following it sales consultant notes: ED note I have reviewed the results of the following tests: As above. I have ordered the following tests: As above. I have discussed the care of this patient with the following independent historian: . I have independently interpreted the following test below: I have discussed the management of this patient with the following physician: Dr. Fuchs. ED provider. Past Medical History Past Medical History: Diabetes Mellitus, Hypertension Additional Past Medical History / Comment(s): skin ca; stage 3 kidney failure History of Any Multi-Drug Resistant Organisms: None Reported Past Surgical History: Cholecystectomy Additional Past Surgical History / Comment(s): left hand surg, colonoscopy Past Anesthesia/Blood Transfusion Reactions: Postoperative Nausea & Vomiting (PONV) Past Psychological History: No Psychological Hx Reported Smoking Status: Current every day smoker Past Alcohol Use History: Rare Medications and Allergies Home Medications Medication Instructions Recorded Confirmed Type Cholecalciferol (Vitamin D3) 125 mcg PO DAILY 04/17/24 12/24/24 History [Vitamin D3 (125 MCG = 5,000 IU)] Evolocumab [Repatha Sureclick] 140 mg SQ Q30D 04/17/24 12/24/24 History Furosemide [Lasix] 40 mg PO DAILY 04/17/24 12/24/24 History Insulin Glargine,Hum.rec.anlog 40 units SQ DAILY 04/17/24 12/24/24 History [Toujeo Solostar] Losartan Potassium 100 mg PO DAILY 04/17/24 12/24/24 History Metoprolol Tartrate 25 mg PO BID 04/17/24 12/24/24 History allopurinoL [Zyloprim] 200 mg PO HS 04/17/24 12/24/24 History Acetaminophen [Tylenol Arthritis] 1,300 mg PO BID 12/24/24 12/24/24 History Dapagliflozin Propanediol [Farxiga] 10 mg PO HS 12/24/24 12/24/24 History Famotidine 20 mg PO HS 12/24/24 12/24/24 History Omeprazole 20 mg PO HS 12/24/24 12/24/24 History Sulfamethox-Tmp 800-160Mg [Bactrim 1 tab PO Q12HR 12/24/24 12/24/24 History DS 800-160 mg] Tirzepatide [Mounjaro] 10 mg SQ TH 12/24/24 12/24/24 History Vit C/E/Zn/Coppr/Lutein/Zeaxan 1 cap PO BID 12/24/24 12/24/24 History [Preservision Areds 2 Softgel] Allergies Allergy/AdvReac Type Severity Reaction Status Date / Time milk AdvReac SNEEZING,GA Verified 12/24/24 15:04 S Physical Exam Vitals: Vital Signs Temp Pulse Resp BP Pulse Ox 12/24/24 15:02 98.2 F 70 22 140/67 95 12/24/24 14:43 103 H 16 137/75 98 12/24/24 14:09 71 16 153/75 96 12/24/24 11:02 98 F 85 18 155/73 98 Intake and Output 12/24/24 12/24/24 12/24/24 06:59 14:59 22:59 Other: Weight 95.708 kg Results CBC & Chem 7: 12/24/24 12:48 12/24/24 12:48 Labs: Abnormal Lab Results - Last 24 Hours (Table) 12/24/24 12/24/24 12/24/24 Range/Units 12:48 12:48 12:48 WBC 10.02 H (4.50-10.00) 10*3/uL RBC 4.25 L (4.40-5.60) 10*6/uL MCH 32.5 H (27.0-32.0) pg MPV 9.4 L (9.5-12.2) fL Immature Gran # 0.05 H (0.00-0.04) 10*3/uL Neutrophils # 7.75 H (1.80-7.70) 10*3/uL Chloride 111 H (98-107) mmol/L BUN 34 H (9-20) mg/dL Creatinine 1.52 H (0.66-1.25) mg/dL Glucose 245 H (74-99) mg/dL AST 14 L (17-59) U/L C-Reactive Protein 6.5 H (<1.0) mg/dL Urine Protein 1+ H (Negative) Urine Glucose (UA) 4+ H (Negative)
[2024-12-24] MEDS: SODIUM CHLORIDE 0.9% 1,000 ML IV SCH (20:14)
--- NOTE | 2024-12-24 22:01 | P.CONS ---
History of Present Illness - Reason for Consult Consult date: 12/24/24 Cellulitis Requesting physician: Loida Godoy - Chief Complaint Left scrotal area pain swelling redness x 3 days - History of Present Illness Patient is a 69-year-old male with a past medical history significant for diabetes mellitus hypertension stage III kidney disease presenting to the hospital for evaluation of left groin/scrotal area swelling and redness patient mention that he noticed a lump on the left lateral side of his scrotal area for the patient did went to an urgent care and the patient has been prescribed Bactrim DS with the patient has been taking however the patient noticed to have significant swelling redness and pain to the left scrotal area describing it to be sharp moderate to severe intensity without radiation and the area started to drain with a foul-smelling material with the symptoms the patient has been brought to the hospital on arrival to the ER the patient was afebrile no fever have been called subsequently patient was tachycardic but not hypotensive or hypoxic he did have a white count of 10.02 with a left shift BUN and creatinine has been mildly elevated liver enzymes are normal urine has been negative patient did have a pelvic CT did not mention any abscess patient did have a scrotal ultrasound completed before coming to the hospital there was thickened erythematous skin without evidence for organizing fluid collection correlate for cellulitis patient has been started on vancomycin received a dose of Zosyn i nfectious disease was consulted for further management of antibiotic therapy Review of Systems Positive point and negatives has been mentioned in the HPI, complete review of systems was performed and all other systems are negative Past Medical History Past Medical History: Diabetes Mellitus, Hypertension Additional Past Medical History / Comment(s): skin ca; stage 3 kidney failure History of Any Multi-Drug Resistant Organisms: None Reported Past Surgical History: Cholecystectomy Additional Past Surgical History / Comment(s): left hand surg, colonoscopy Past Anesthesia/Blood Transfusion Reactions: Postoperative Nausea & Vomiting (PONV) Past Psychological History: No Psychological Hx Reported Smoking Status: Current every day smoker Past Alcohol Use History: Rare Medications and Allergies Home Medications Medication Instructions Recorded Confirmed Type Cholecalciferol (Vitamin D3) 125 mcg PO DAILY 04/17/24 12/24/24 History [Vitamin D3 (125 MCG = 5,000 IU)] Evolocumab [Repatha Sureclick] 140 mg SQ Q30D 04/17/24 12/24/24 History Furosemide [Lasix] 40 mg PO DAILY 04/17/24 12/24/24 History Insulin Glargine,Hum.rec.anlog 40 units SQ DAILY 04/17/24 12/24/24 History [Toumoses Solostar] Losartan Potassium 100 mg PO DAILY 04/17/24 12/24/24 History Metoprolol Tartrate 25 mg PO BID 04/17/24 12/24/24 History allopurinoL [Zyloprim] 200 mg PO HS 04/17/24 12/24/24 History Acetaminophen [Tylenol Arthritis] 1,300 mg PO BID 12/24/24 12/24/24 History Dapagliflozin Propanediol [Farxiga] 10 mg PO HS 12/24/24 12/24/24 History Famotidine 20 mg PO HS 12/24/24 12/24/24 History Omeprazole 20 mg PO HS 12/24/24 12/24/24 History Sulfamethox-Tmp 800-160Mg [Bactrim 1 tab PO Q12HR 12/24/24 12/24/24 History DS 800-160 mg] Tirzepatide [Mounjaro] 10 mg SQ TH 12/24/24 12/24/24 History Vit C/E/Zn/Coppr/Lutein/Zeaxan 1 cap PO BID 12/24/24 12/24/24 History [Preservision Areds 2 Softgel] Allergies Allergy/AdvReac Type Severity Reaction Status Date / Time milk AdvReac SNEEZING,GA Verified 12/24/24 15:04 S Physical Exam Vitals: Vital Signs Temp Pulse Resp BP Pulse Ox 12/24/24 15:02 98.2 F 70 22 140/67 95 12/24/24 14:43 103 H 16 137/75 98 12/24/24 14:09 71 16 153/75 96 12/24/24 11:02 98 F 85 18 155/73 98 Intake and Output 12/24/24 12/24/24 12/24/24 06:59 14:59 22:59 Other: Weight 95.708 kg GENERAL DESCRIPTION: Elderly male lying in bed, no distress. No tachypnea or ac cessory muscle of respiration use. HEENT: Shows Pallor , no scleral icterus. Oral mucous membrane is dry. NECK: Trachea central, no thyromegaly. LUNGS: Unlabored breathing. Clear to auscultation anteriorly. No wheeze or crackle. HEART: S1, S2, regular rate and rhythm. No loud murmur ABDOMEN: Soft, no tenderness , : Left lateral scrotal area did have significant duration and with minimal pressure foul-smelling purulent material came out which was cultured EXTREMITIES: No edema of feet. SKIN: No rash, no masses palpable. NEUROLOGICAL: The patient is awake, alert, oriented x3, mood and affect normal. Results CBC & Chem 7: 12/24/24 12:48 12/24/24 12:48 Labs: Abnormal Lab Results - Last 24 Hours (Table) 12/24/24 12/24/24 12/24/24 Range/Units 12:48 12:48 12:48 WBC 10.02 H (4.50-10.00) 10*3/uL RBC 4.25 L (4.40-5.60) 10*6/uL MCH 32.5 H (27.0-32.0) pg MPV 9.4 L (9.5-12.2) fL Immature Gran # 0.05 H (0.00-0.04) 10*3/uL Neutrophils # 7.75 H (1.80-7.70) 10*3/uL Chloride 111 H (98-107) mmol/L BUN 34 H (9-20) mg/dL Creatinine 1.52 H (0.66-1.25) mg/dL Glucose 245 H (74-99) mg/dL AST 14 L (17-59) U/L C-Reactive Protein 6.5 H (<1.0) mg/dL Urine Protein 1+ H (Negative) Urine Glucose (UA) 4+ H (Negative) Assessment and Plan (1) Scrotal abscess Current Visit: Yes Status: Acute Code(s): N49.2 - INFLAMMATORY DISORDERS OF SCROTUM SNOMED Code(s): 95304712 (2) Failure of outpatient treatment Current Visit: Yes Status: Acute Code(s): Z78.9 - OTHER SPECIFIED HEALTH STATUS SNOMED Code(s): 985977797 (3) Elevated serum creatinine Current Visit: Yes Status: Acute Code(s): R79.89 - OTHER SPECIFIED ABNORMAL FINDINGS OF BLOOD CHEMISTRY SNOMED Code(s): 746842926 Plan: 1patient presented to hospital with significant pain swelling and redness to the left scrotal area with spontaneous drainage of a foul-smelling material concerning for an abscess likely from gram-positive skin haylee gram-negative infection less likely but not excluded 2patient with elevated creatinine high risk of nephrotoxicity. 3patient will be treated with vancomycin watching his kidney function closely and will add Unasyn for gram-negative coverage while waiting for the workup to be completed. 4await urology evaluation for formal drainage of this abscess at the bedside multiple question concern answered We will follow on clinical condition and cultures to further adjust medication if needed Thank you for this consultation we will follow the patient along with you Dictation was produced using [employer] dictation software. please excuse any grammatical, word or spelling errors. Time with Patient: Greater than 30
[2024-12-24] MEDS: FAMOTIDINE 20 MG TAB PO SCH (22:37)
[2024-12-24] MEDS: allopurinoL 100 MG TAB PO SCH (22:37)
[2024-12-24] MEDS: METOPROLOL TARTRATE 25 MG TAB PO SCH (22:37)
[2024-12-24] MEDS: PANTOPRAZOLE 40 MG TABLET PO SCH (22:37)
[2024-12-25] MEDS: HEPARIN SODIUM,PORCINE 5,000 UNIT/ML 1 ML VIAL SQ SCH (02:07)
[2024-12-25 06:32] LABS: African American GFR (CKD) 54 (>60 ml/min/1.73 sqM); Anion Gap 6 mmol/L; Blood Urea Nitrogen 27 mg/dL (9-20); Calcium 8.5 mg/dL (8.4-10.2); Carbon Dioxide 24 mmol/L (22-30); Chloride 112 mmol/L (98-107); Glucose 150 mg/dL (74-99); Non-African American GFR(CKD) 47 (>60 ml/min/1.73 sqM); Potassium 3.9 mmol/L (3.5-5.1); Sodium 142 mmol/L (137-145)
[2024-12-25 08:23] LABS: Basophils # (A) 0.08 X 10*3/uL (0.00-0.10); Basophils % (A) 0.9 %; Eosinophils # (A) 0.21 X 10*3/uL (0.04-0.35); Eosinophils % (A) 2.3 %; HCT 37.7 % (39.6-50.0); HGB 12.1 g/dL (13.0-17.0); Lymphocytes # (A) 1.34 X 10*3/uL (0.90-5.00); Lymphocytes % (A) 14.8 %; MCHC 32.1 g/dL (32.0-37.0); MCV 96.7 FL (80.0-97.0); Mean Platelet Volume 9.6 FL (9.5-12.2); Monocytes # (A) 0.71 X 10*3/uL (0.20-1.00); Monocytes % (A) 7.9 %; NRBC Per 100 WBC 0 X 10*3/uL (0.00-0.01); Neutrophils # (A) 6.63 X 10*3/uL (1.80-7.70); Neutrophils % (A) 73.4 %; Platelet Count 161 X 10*3/uL (140-440); RDW 13.6 % (11.5-14.5); WBC 9.03 X 10*3/uL (4.50-10.00)
[2024-12-25 09:38] LABS: Glucose,Whole Blood 295 mg/dL (70-110)
[2024-12-25] MEDS: INSULIN GLARGINE (LANTUS) 100 UNIT/ML SYR SQ SCH (09:53)
[2024-12-25] MEDS: AMPICILLIN-SULBACTAM 3 GM in SODIUM CHLORIDE 0.9% 100 ML IVPB SCH ×2 (10:02→17:00)
[2024-12-25 11:38] LABS: Glucose,Whole Blood 252 mg/dL (70-110)
[2024-12-25] MEDS: VANCOMYCIN 1,500 MG in SODIUM CHLORIDE 0.9% 500 ML 500 ML IVPB SCH (12:25)
[2024-12-25] MEDS ORDERED: DEXTROSE 50% SYRINGE 50 ML IVP PRN ×2 (13:01)
--- NOTE | 2024-12-25 14:57 | P.PN ---
Subjective Progress Note Date: 12/25/24 69 year old M with PMH of DM, CKD, HTN, Gout, Gastritis, HLD presents to the ED. He reports scrotal "bubble" that started 1 week ago. The lump progressively grew to the size of his thumb over the past week. He did go to urgent care and received Bactrim which did not help his symptoms. He also underwent an US which showed concerns for cellulitis. Today, it became an open wound draining purulent discharge which prompted him to go to the ED. He denies any fever or chills, nausea or vomiting, cough, chest pain, shortness of breath, palpitations, changes in urination or bowel habits. In the ED he underwent extensive evaluation. BP 155/73, HR 85, T 98F, RR 18, 98% on RA. Labs significant for WBC 10.02, RBC 4.25, Cl 111, BUN 34, Cr 1.52, glu 245, AST 14, CRP 6.5. UA 1+ protein and 4+ glucose. CT pelvis no acute findings. Patient is started on Vancomycin and Zosyn and admitted for further workup and management. 12/25 Patient was seen and examined. No changes clinically. Maintained on Vancomycin dosed per pharmacy and Unasyn 3g IV TID. CBC and BMP significant for RBC 3.9, Hg 12.1, Hct 37.7, Cl 112, BUN 27, Cr 1.49, glu 150. General: non toxic, no distress, appears at stated age Derm: warm, dry Head: atraumatic, normocephalic, symmetric Eyes: EOMI, no lid lag, anicteric sclera Mouth: no lip lesion, mucus membranes moist Cardiovascular: S1S2 reg, no murmur Lungs: Clear to auscultation bilaterally, no rhonchi, no rales , no accessory muscle use : Scrotal draining abscess left side with purulent discharge Ext: no gross muscle atrophy, no edema Neuro: no focal neuro deficits Psych: Alert and oriented. Based on my assessment of this patient, this patient meets a high complexity level of care. Scrotal abscess: Continue Vancomycin dosed per pharmacy, monitor daily renal function. Zosyn switched to Unasyn 3g IV TID by ID. Wound culture collected with Dr. Fuchs. Pain management with Ellery 5 Q4 PRN, Morphine 4 mg IV Q4 PRN. ID and Urology on board. BLAS on CKD stage 2: Continue NS at 100 cc/hr. Hold Farxiga and Lasix for now. Repeat BMP in the AM. DM with hyperglycemia: Levemir 40 units QD. ISS with Accuchecks ACHS along with hypoglycemic precautions. Hypertension: Metoprolol 25 mg PO BID. Restart Losartan 100 mg PO QD. Gout: Allopurinol 200 mg PO QHS. Gastritis: Pepcid 20 mg PO QHS. Prilosec 20 mg PO QHS. Dyslipidemia: On Repatha monthly. CODE STATUS: FULL CODE DVT Prophylaxis: Heparin GI Prophylaxis: Protonix + Pepcid Designated medical POA if patient is not able to make medical decisions for themselves: I have reviewed the following farm service consultant notes: ID note I have reviewed the results of the following tests: CBC, BMP. I have ordered the following tests: BMP. Vanc trough. I have discussed the care of this patient with the following independent historian: I have independently interpreted the following test below: I have discussed the management of this patient with the following physician: Objective - Vital Signs Vital signs: Vital Signs Temp 98.5 F 12/25/24 08:09 Pulse 69 12/25/24 08:09 Resp 16 12/25/24 08:09 BP 170/76 12/25/24 08:09 Pulse Ox 96 12/25/24 08:09 FiO2 Intake & Output 12/24/24 12/25/24 12/25/24 18:59 06:59 18:59 Weight 95.708 kg 95.708 kg Other: Voiding Method Toilet - Labs CBC & Chem 7: 12/25/24 05:42 12/25/24 05:42 Labs: Abnormal Lab Results - Last 24 Hours (Table) 12/25/24 12/25/24 12/25/24 Range/Units 05:42 05:42 09:37 RBC 3.90 L (4.40-5.60) X 10*6/uL Hgb 12.1 L (13.0-17.0) g/dL Hct 37.7 L (39.6-50.0) % Immature Gran # 0.06 H (0.00-0.04) X 10*3/uL Chloride 112 H (98-107) mmol/L BUN 27 H (9-20) mg/dL Creatinine 1.49 H (0.66-1.25) mg/dL Glucose 150 H (74-99) mg/dL POC Glucose (mg/dL) 295 H (70-110) mg/dL 12/25/24 Range/Units 11:36 RBC (4.40-5.60) X 10*6/uL Hgb (13.0-17.0) g/dL Hct (39.6-50.0) % Immature Gran # (0.00-0.04) X 10*3/uL Chloride (98-107) mmol/L BUN (9-20) mg/dL Creatinine (0.66-1.25) mg/dL Glucose (74-99) mg/dL POC Glucose (mg/dL) 252 H (70-110) mg/dL Microbiology - Last 24 Hours (Table) 12/24/24 12:48 Gram Stain - Preliminary Groin Wound Culture - Preliminary
--- NOTE | 2024-12-25 15:23 | P.GSCN ---
History of Present Illness Consult date: 12/25/24 Reason for Consult: Left scrotal abscess Requesting physician: Whit Hurley History of present illness: The patient is a 69-year-old male who experienced left-sided scrotal pain and swelling last week. He was seen by Dr. Chambers and placed on Bactrim. However, his condition failed to improve and he developed spontaneous drainage of malodorous and purulent fluid on December 23, 2024. He states that his scrotal swel ling has diminished significantly since that time. He continues to report left- sided scrotal pain, though it is less severe than it was previously. He denies any prior history of scrotal abscess. Review of Systems - Constitutional Denies chills, Denies fever - Cardiovascular Reports high blood pressure Past Medical History Past Medical History: Diabetes Mellitus, Hypertension Additional Past Medical History / Comment(s): skin ca; stage 3 kidney failure History of Any Multi-Drug Resistant Organisms: None Reported Past Surgical History: Cholecystectomy Additional Past Surgical History / Comment(s): left hand surg, colonoscopy Past Anesthesia/Blood Transfusion Reactions: Postoperative Nausea & Vomiting (PONV) Past Psychological History: No Psychological Hx Reported Smoking Status: Current every day smoker Past Alcohol Use History: Rare Medications and Allergies Home Medications Medication Instructions Recorded Confirmed Type Cholecalciferol (Vitamin D3) 125 mcg PO DAILY 04/17/24 12/24/24 History [Vitamin D3 (125 MCG = 5,000 IU)] Evolocumab [Repatha Sureclick] 140 mg SQ Q30D 04/17/24 12/24/24 History Furosemide [Lasix] 40 mg PO DAILY 04/17/24 12/24/24 History Insulin Glargine,Hum.rec.anlog 40 units SQ DAILY 04/17/24 12/24/24 History [Toujeo Solostar] Losartan Potassium 100 mg PO DAILY 04/17/24 12/24/24 History Metoprolol Tartrate 25 mg PO BID 04/17/24 12/24/24 History allopurinoL [Zyloprim] 200 mg PO HS 04/17/24 12/24/24 History Acetaminophen [Tylenol Arthritis] 1,300 mg PO BID 12/24/24 12/24/24 History Dapagliflozin Propanediol [Farxiga] 10 mg PO HS 12/24/24 12/24/24 History Famotidine 20 mg PO HS 12/24/24 12/24/24 History Omeprazole 20 mg PO HS 12/24/24 12/24/24 History Sulfamethox-Tmp 800-160Mg [Bactrim 1 tab PO Q12HR 12/24/24 12/24/24 History DS 800-160 mg] Tirzepatide [Mounjaro] 10 mg SQ TH 12/24/24 12/24/24 History Vit C/E/Zn/Coppr/Lutein/Zeaxan 1 cap PO BID 12/24/24 12/24/24 History [Preservision Areds 2 Softgel] Allergies Allergy/AdvReac Type Severity Reaction Status Date / Time No Known Allergies Allergy Verified 12/25/24 15:02 Surgical - Exam Vital Signs Temp Pulse Resp BP Pulse Ox 98 F 85 18 155/73 98 12/24/24 11:02 12/24/24 11:02 12/24/24 11:02 12/24/24 11:02 12/24/24 11:02 - General well developed, well nourished, no distress - Respiratory normal respiratory effort - Abdomen Abdomen: soft, non tender, no guarding, no rigid, no rebound - Genitourinary The penis is normal. The testes are normal. Mild left-sided scrotal edema is noted. A small opening is identified on the lateral aspect of the left scrotum, and a small amount of purulent fluid can be expressed through this. There is no cellulitis. - Psychiatric oriented to time, oriented to person, oriented to place, speech is normal, memory intact Results - Labs 12/25/24 05:42 12/25/24 05:42 Abnormal Lab Results - Last 24 Hours (Table) 12/24/24 12/24/24 12/24/24 Range/Units 12:48 12:48 12:48 WBC 10.02 H (4.50-10.00) 10*3/uL RBC 4.25 L (4.40-5.60) 10*6/uL MCH 32.5 H (27.0-32.0) pg MPV 9.4 L (9.5-12.2) fL Immature Gran # 0.05 H (0.00-0.04) 10*3/uL Neutrophils # 7.75 H (1.80-7.70) 10*3/uL Chloride 111 H (98-107) mmol/L BUN 34 H (9-20) mg/dL Creatinine 1.52 H (0.66-1.25) mg/dL Glucose 245 H (74-99) mg/dL AST 14 L (17-59) U/L C-Reactive Protein 6.5 H (<1.0) mg/dL Urine Protein 1+ H (Negative) Urine Glucose (UA) 4+ H (Negative) 12/25/24 Range/Units 05:42 WBC (4.50-10.00) 10*3/uL RBC (4.40-5.60) 10*6/uL MCH (27.0-32.0) pg MPV (9.5-12.2) fL Immature Gran # (0.00-0.04) 10*3/uL Neutrophils # (1.80-7.70) 10*3/uL Chloride 112 H (98-107) mmol/L BUN 27 H (9-20) mg/dL Creatinine 1.49 H (0.66-1.25) mg/dL Glucose 150 H (74-99) mg/dL AST (17-59) U/L C-Reactive Protein (<1.0) mg/dL Urine Protein (Negative) Urine Glucose (UA) (Negative) Diabetes panel 12/24/24 12/25/24 Range/Units 12:48 05:42 Sodium 142 142 (137-145) mmol/L Potassium 4.4 3.9 (3.5-5.1) mmol/L Chloride 111 H 112 H (98-107) mmol/L Carbon Dioxide 25 24 (22-30) mmol/L BUN 34 H 27 H (9-20) mg/dL Creatinine 1.52 H 1.49 H (0.66-1.25) mg/dL Glucose 245 H 150 H (74-99) mg/dL Calcium 8.9 8.5 (8.4-10.2) mg/dL AST 14 L (17-59) U/L ALT 14 (4-49) U/L Alkaline Phosphatase 76 (38-126) U/L Total Protein 6.6 (6.3-8.2) g/dL Albumin 3.7 (3.5-5.0) g/dL Calcium panel 12/24/24 12/25/24 Range/Units 12:48 05:42 Calcium 8.9 8.5 (8.4-10.2) mg/dL Albumin 3.7 (3.5-5.0) g/dL Pituitary panel 12/24/24 12/25/24 Range/Units 12:48 05:42 Sodium 142 142 (137-145) mmol/L Potassium 4.4 3.9 (3.5-5.1) mmol/L Chloride 111 H 112 H (98-107) mmol/L Carbon Dioxide 25 24 (22-30) mmol/L BUN 34 H 27 H (9-20) mg/dL Creatinine 1.52 H 1.49 H (0.66-1.25) mg/dL Glucose 245 H 150 H (74-99) mg/dL Calcium 8.9 8.5 (8.4-10.2) mg/dL Adrenal panel 12/24/24 12/25/24 Range/Units 12:48 05:42 Sodium 142 142 (137-145) mmol/L Potassium 4.4 3.9 (3.5-5.1) mmol/L Chloride 111 H 112 H (98-107) mmol/L Carbon Dioxide 25 24 (22-30) mmol/L BUN 34 H 27 H (9-20) mg/dL Creatinine 1.52 H 1.49 H (0.66-1.25) mg/dL Glucose 245 H 150 H (74-99) mg/dL Calcium 8.9 8.5 (8.4-10.2) mg/dL Total Bilirubin 0.6 (0.2-1.3) mg/dL AST 14 L (17-59) U/L ALT 14 (4-49) U/L Alkaline Phosphatase 76 (38-126) U/L Total Protein 6.6 (6.3-8.2) g/dL Albumin 3.7 (3.5-5.0) g/dL - Imaging CT scan - pelvis: report reviewed, image reviewed Assessment and Plan (1) Scrotal abscess Current Visit: Yes Status: Acute Code(s): N49.2 - INFLAMMATORY DISORDERS OF SCROTUM SNOMED Code(s): 25146401 Plan: The patient has a left scrotal abscess which is draining spontaneously. CT scan of the pelvis shows no evidence of a deep abscess. He is receiving Unasyn, pending wound culture results. Given that some purulence can be expressed through the incision (which is small), I believe the patient would benefit from a formal incision and drainage. This will be performed at the bedside tomorrow morning. Time with Patient: Greater than 30
--- NOTE | 2024-12-25 15:28 | P.PN ---
Subjective Progress Note Date: 12/25/24 Principal diagnosis: Reason for follow-up is left scrotal abscess Patient is a 69-year-old male with a past medical history significant for diabetes mellitus hypertension stage III kidney disease presenting to the hospital for evaluation of left groin/scrotal area swelling and patient to be diagnosed with a left scrotal abscess prompting this consultation. On today's evaluation that is 12/25/2024, patient has been afebrile, patient is breathing comfortably and is currently on room air, patient denies having any chest pain and cough, patient denies nausea vomiting or diarrhea and no abdominal pain pain to the left groin area slightly decreased in intensity. Patient white count is 9.03, creatinine is 1.49 cultures currently pending Objective - Vital Signs Vital signs: Vital Signs Temp 98.5 F 12/25/24 08:09 Pulse 69 12/25/24 08:09 Resp 16 12/25/24 08:09 BP 170/76 12/25/24 08:09 Pulse Ox 96 12/25/24 08:09 FiO2 Intake & Output 12/24/24 12/25/24 12/25/24 18:59 06:59 18:59 Weight 95.708 kg 95.708 kg Other: Voiding Method Toilet - Exam GENERAL DESCRIPTION: An elderly male lying in bed in no distress RESPIRATORY SYSTEM: Unlabored breathing , decreased breath sounds at bases HEART: S1 S2 regular rate and rhythm , ABDOMEN: Soft , no tenderness EXTREMITIES: No edema feet - Labs CBC & Chem 7: 12/25/24 05:42 12/25/24 05:42 Labs: Abnormal Lab Results - Last 24 Hours (Table) 12/25/24 12/25/24 12/25/24 Range/Units 05:42 05:42 09:37 RBC 3.90 L (4.40-5.60) X 10*6/uL Hgb 12.1 L (13.0-17.0) g/dL Hct 37.7 L (39.6-50.0) % Immature Gran # 0.06 H (0.00-0.04) X 10*3/uL Chloride 112 H (98-107) mmol/L BUN 27 H (9-20) mg/dL Creatinine 1.49 H (0.66-1.25) mg/dL Glucose 150 H (74-99) mg/dL POC Glucose (mg/dL) 295 H (70-110) mg/dL 12/25/24 Range/Units 11:36 RBC (4.40-5.60) X 10*6/uL Hgb (13.0-17.0) g/dL Hct (39.6-50.0) % Immature Gran # (0.00-0.04) X 10*3/uL Chloride (98-107) mmol/L BUN (9-20) mg/dL Creatinine (0.66-1.25) mg/dL Glucose (74-99) mg/dL POC Glucose (mg/dL) 252 H (70-110) mg/dL Microbiology - Last 24 Hours (Table) 12/24/24 12:48 Gram Stain - Preliminary Groin Wound Culture - Preliminary Assessment and Plan (1) Scrotal abscess Current Visit: Yes Status: Acute Code(s): N49.2 - INFLAMMATORY DISORDERS OF SCROTUM SNOMED Code(s): 95611831 (2) Failure of outpatient treatment Current Visit: Yes Status: Acute Code(s): Z78.9 - OTHER SPECIFIED HEALTH STATUS SNOMED Code(s): 525353979 (3) Elevated serum creatinine Current Visit: Yes Status: Acute Code(s): R79.89 - OTHER SPECIFIED ABNORMAL FINDINGS OF BLOOD CHEMISTRY SNOMED Code(s): 146064630 Plan: 1patient presented to hospital with significant pain swelling and redness to the left scrotal area with spontaneous drainage of a foul-smelling material concerning for an abscess likely from gram-positive skin haylee gram-negative infection less likely but not excluded 2patient has been evaluated by urology planning for surgical drainage tomorrow 3culture obtained yesterday so far pending we will treat with vancomycin while watching his kidney function closely and Unasyn pending culture finalization Dictation was produced using [employer] dictation software. please excuse any grammatical, word or spelling errors. Time with Patient: Less than 30
[2024-12-25 16:44] LABS: Glucose,Whole Blood 265 mg/dL (70-110)
[2024-12-25] MEDS: LOSARTAN 50 MG TAB PO SCH (17:00)
[2024-12-25] MEDS: INSULIN LISPRO (HumaLOG) 100 UNIT/ML 10 mL VL SQ SCH (17:01)
[2024-12-25 20:35] LABS: Glucose,Whole Blood 233 mg/dL (70-110)
[2024-12-25] MEDS ORDERED: AMPICILLIN-SULBACTAM 3 GM in SODIUM CHLORIDE 0.9% 100 ML IVPB SCH (22:00)
[2024-12-26 06:07] LABS: Glucose,Whole Blood 231 mg/dL (70-110)
[2024-12-26 06:35] LABS: HCT 37.9 % (39.6-50.0); HGB 12.8 g/dL (13.0-17.0); MCH 32.7 pg (27.0-32.0); MCHC 33.8 g/dL (32.0-37.0); MCV 96.7 fL (80.0-97.0); Platelet Count 142 10*3/uL (140-440); RBC 3.92 10*6/uL (4.40-5.60); RDW 13.6 % (11.5-14.5); WBC 7.81 10*3/uL (4.50-10.00)
[2024-12-26 06:48] LABS: African American GFR (CKD) 69 (>60 ml/min/1.73 sqM); Anion Gap 10 mmol/L; Blood Urea Nitrogen 19 mg/dL (9-20); Calcium 8.6 mg/dL (8.4-10.2); Carbon Dioxide 22 mmol/L (22-30); Chloride 109 mmol/L (98-107); Glucose 185 mg/dL (74-99); Non-African American GFR(CKD) 60 (>60 ml/min/1.73 sqM); Sodium 141 mmol/L (137-145)
--- NOTE | 2024-12-26 10:18 | P.PN ---
Subjective Progress Note Date: 12/26/24 69 year old M with PMH of DM, CKD, HTN, Gout, Gastritis, HLD presents to the ED. He reports scrotal "bubble" that started 1 week ago. The lump progressively grew to the size of his thumb over the past week. He did go to urgent care and received Bactrim which did not help his symptoms. He also underwent an US which showed concerns for cellulitis. Today, it became an open wound draining purulent discharge which prompted him to go to the ED. He denies any fever or chills, nausea or vomiting, cough, chest pain, shortness of breath, palpitations, changes in urination or bowel habits. In the ED he underwent extensive evaluation. BP 155/73, HR 85, T 98F, RR 18, 98% on RA. Labs significant for WBC 10.02, RBC 4.25, Cl 111, BUN 34, Cr 1.52, glu 245, AST 14, CRP 6.5. UA 1+ protein and 4+ glucose. CT pelvis no acute findings. Patient is started on Vancomycin and Zosyn and admitted for further workup and management. ID switched Zosyn to Unasyn. Urology plans on doing a bedside I&D on 12/26. 12/26 Patient was seen and examined. Reports improvement in his scrotal pain. Maintained on Vancomycin dosed per pharmacy and Unasyn 3g IV Q6H. CBC and BMP significant for RBC 3.92, Hg 12.8, Hct 37.9, Cl 109, glu 185. WCx growing many PMN, many G+ cocci, many G- bacilli. BP 171/88, HR 67, T 98.6F, RR 16, 97% on RA. General: non toxic, no distress, appears at stated age Derm: warm, dry Head: atraumatic, normocephalic, symmetric Eyes: EOMI, no lid lag, anicteric sclera Mouth: no lip lesion, mucus membranes moist Cardiovascular: S1S2 reg, no murmur Lungs: Clear to auscultation bilaterally, no rhonchi, no rales , no accessory muscle use : Scrotal draining abscess left side with purulent discharge Ext: no gross muscle atrophy, no edema Neuro: no focal neuro deficits Psych: Alert and oriented. Based on my assessment of this patient, this patient meets a high complexity level of care. Scrotal abscess: Continue Vancomycin dosed per pharmacy, monitor daily renal function (D3). Unasyn 3g IV TID (D2). Discussed with Dr. Polo, plans for bedside I&D today. Pain management with Osakis 5 Q4 PRN, Morphine 4 mg IV Q4 PRN. ID and Urology on board. DM with hyperglycemia: Levemir 40 units QD. ISS with Accuchecks ACHS along with hypoglycemic precautions. CKD stage II: Decrease NS from 100 to 20 cc/hr. Hold Farxiga. Repeat BMP in the AM. Hypertension: Metoprolol 25 mg PO BID. Losartan 100 mg PO QD. Restart Lasix 40 mg PO QD. Gout: Allopurinol 200 mg PO QHS. Gastritis: Pepcid 20 mg PO QHS. Prilosec 20 mg PO QHS. Dyslipidemia: On Repatha monthly. Resolved: BLAS CODE STATUS: FULL CODE DVT Prophylaxis: Heparin GI Prophylaxis: Protonix + Pepcid Designated medical POA if patient is not able to make medical decisions for themselves: I have reviewed the following managing consultant clinical professor notes: ID, Urology note I have reviewed the results of the following tests: CBC, BMP. I have ordered the following tests: BMP. Vanc trough. I have discussed the care of this patient with the following independent historian: . I have independently interpreted the following test below: I have discussed the management of this patient with the following physician: Dr. Polo. Objective - Vital Signs Vital signs: Vital Signs Temp 98.6 F 12/26/24 07:31 Pulse 67 12/26/24 07:45 Resp 16 12/26/24 07:45 BP 171/88 12/26/24 07:31 Pulse Ox 97 12/26/24 07:31 FiO2 Intake & Output 12/25/24 12/26/24 12/26/24 18:59 06:59 18:59 Weight 95.708 kg Other: Voiding Method Toilet Toilet Toilet # Voids 3 1 1 - Labs CBC & Chem 7: 12/26/24 06:07 12/26/24 06:07 Labs: Abnormal Lab Results - Last 24 Hours (Table) 12/25/24 12/25/24 12/25/24 Range/Units 11:36 16:42 20:34 RBC (4.40-5.60) 10*6/uL Hgb (13.0-17.0) g/dL Hct (39.6-50.0) % MCH (27.0-32.0) pg MPV (9.5-12.2) fL Chloride (98-107) mmol/L Glucose (74-99) mg/dL POC Glucose (mg/dL) 252 H 265 H 233 H (70-110) mg/dL 12/26/24 12/26/24 12/26/24 Range/Units 06:06 06:07 06:07 RBC 3.92 L (4.40-5.60) 10*6/uL Hgb 12.8 L (13.0-17.0) g/dL Hct 37.9 L (39.6-50.0) % MCH 32.7 H (27.0-32.0) pg MPV 9.0 L (9.5-12.2) fL Chloride 109 H (98-107) mmol/L Glucose 185 H (74-99) mg/dL POC Glucose (mg/dL) 231 H (70-110) mg/dL Microbiology - Last 24 Hours (Table) 12/24/24 12:48 Gram Stain - Final Groin Wound Culture - Final 12/24/24 18:32 Gram Stain - Preliminary Groin Wound Culture - Preliminary 12/24/24 12:48 Blood Culture - Preliminary Blood
[2024-12-26] MEDS ORDERED: LOPERAMIDE 2 MG CAP PO PRN (10:19)
[2024-12-26] MEDS: FUROSEMIDE 40 MG TAB PO SCH (10:50)
[2024-12-26] MEDS: ACETAMINOPHEN TAB 325 MG TAB PO PRN (10:53)
[2024-12-26 11:42] LABS: Glucose,Whole Blood 161 mg/dL (70-110)
[2024-12-26 15:32] VITALS: RESP 18
[2024-12-26 16:40] LABS: Glucose,Whole Blood 209 mg/dL (70-110)
[2024-12-26] MEDS: LACTOBACILLUS ACIDOPHILUS/PECT 1 EACH CAPSULE PO SCH (17:54)
[2024-12-26 20:47] LABS: Glucose,Whole Blood 311 mg/dL (70-110)
--- NOTE | 2024-12-26 21:46 | P.PN ---
Subjective Progress Note Date: 12/26/24 Principal diagnosis: Reason for follow-up is left scrotal abscess Patient is a 69-year-old male with a past medical history significant for diabetes mellitus hypertension stage III kidney disease presenting to the hospital for evaluation of left groin/scrotal area swelling and patient to be diagnosed with a left scrotal abscess prompting this consultation. On today's evaluation that is 12/26/2024, Patient is afebrile this morning patient denies having any chest pain shortness of breath or cough, the patient is currently on room air, patient denies any abdominal pain no diarrhea no nausea no vomiting pain to the left scrotal area has decreased and drainage has decreased as well. Patient did have a white count of 7.84, creatinine is 1.22 local culture with Peptostreptococcus and Prevotella Objective - Vital Signs Vital signs: Vital Signs Temp 98.6 F 12/26/24 07:31 Pulse 67 12/26/24 07:45 Resp 16 12/26/24 07:45 BP 171/88 12/26/24 07:31 Pulse Ox 97 12/26/24 07:31 FiO2 Intake & Output 12/25/24 12/26/24 12/26/24 18:59 06:59 18:59 Weight 95.708 kg Other: Voiding Method Toilet Toilet Toilet # Voids 3 1 1 - Exam GENERAL DESCRIPTION: An elderly male lying in bed in no distress RESPIRATORY SYSTEM: Unlabored breathing , decreased breath sounds at bases HEART: S1 S2 regular rate and rhythm , ABDOMEN: Soft , no tenderness EXTREMITIES: No edema feet - Labs CBC & Chem 7: 12/26/24 06:07 12/26/24 06:07 Labs: Abnormal Lab Results - Last 24 Hours (Table) 12/25/24 12/25/24 12/25/24 Range/Units 11:36 16:42 20:34 RBC (4.40-5.60) 10*6/uL Hgb (13.0-17.0) g/dL Hct (39.6-50.0) % MCH (27.0-32.0) pg MPV (9.5-12.2) fL Chloride (98-107) mmol/L Glucose (74-99) mg/dL POC Glucose (mg/dL) 252 H 265 H 233 H (70-110) mg/dL 12/26/24 12/26/24 12/26/24 Range/Units 06:06 06:07 06:07 RBC 3.92 L (4.40-5.60) 10*6/uL Hgb 12.8 L (13.0-17.0) g/dL Hct 37.9 L (39.6-50.0) % MCH 32.7 H (27.0-32.0) pg MPV 9.0 L (9.5-12.2) fL Chloride 109 H (98-107) mmol/L Glucose 185 H (74-99) mg/dL POC Glucose (mg/dL) 231 H (70-110) mg/dL Microbiology - Last 24 Hours (Table) 12/24/24 12:48 Gram Stain - Final Groin Wound Culture - Final 12/24/24 18:32 Gram Stain - Preliminary Groin Wound Culture - Preliminary 12/24/24 12:48 Blood Culture - Preliminary Blood Assessment and Plan (1) Scrotal abscess Current Visit: Yes Status: Acute Code(s): N49.2 - INFLAMMATORY DISORDERS OF SCROTUM SNOMED Code(s): 31507102 (2) Failure of outpatient treatment Current Visit: Yes Status: Acute Code(s): Z78.9 - OTHER SPECIFIED HEALTH STATUS SNOMED Code(s): 953734611 (3) Elevated serum creatinine Current Visit: Yes Status: Acute Code(s): R79.89 - OTHER SPECIFIED ABNORMAL FINDINGS OF BLOOD CHEMISTRY SNOMED Code(s): 555712762 Plan: 1patient presented to hospital with significant pain swelling and redness to the left scrotal area with spontaneous drainage of a foul-smelling material conc erning for an abscess likely from gram-positive skin haylee gram-negative infection less likely but not excluded 2patient has been evaluated by urology planning for surgical drainage this afternoon 3culture obtained currently growing mostly anaerobes with no MRSA vancomycin to be discontinued continue with Unasyn Dictation was produced using [employer] dictation software. please excuse any grammatical, word or spelling errors. Time with Patient: Less than 30
--- NOTE | 2024-12-26 22:06 | P.PCN ---
Date of Procedure: 12/26/24 Preoperative Diagnosis: Left scrotal abscess Postoperative Diagnosis: Same Procedure(s) Performed: I & D Left Scrotal Abscess Anesthesia: local Surgeon: Jeremiah Polo Estimated Blood Loss (ml): 3 Pathology: none sent Condition: stable Disposition: no change Indications for Procedure: The patient is a 69-year-old male who experienced left-sided scrotal pain and swelling last week. He was seen by Dr. Vega and placed on Bactrim. However, his condition failed to improve and he developed spontaneous drainage of malodorous and purulent fluid on December 23, 2024. He states that his scrotal swelling has diminished significantly since that time. He continues to report left-sided scrotal pain, though it is less severe than it was previously. He has been admitted and is receiving IV antibiotics. His pain resolved overnight. Operative Findings: Small left scrotal abscess cavity, drained completely. Description of Procedure: The patient lied supine in his hospital bed. The external genitalia was prepped and draped sterilely. A small amount of purulence could be expressed through the small left lateral scrotal opening. Lidocaine was injected subcutaneously lateral to the opening. An 11 blade scalpel was used to extend the incision laterally. A cotton tip applicator was inserted into the opening and cultures were sent. Suture scissors were then used to probe the opening, revealing it to be a small abscess cavity which was drained completely. 4 x 4 gauze was applied over the incision, followed by scrotal support. The patient tolerated the procedure well.
[2024-12-27 05:20] LABS: African American GFR (CKD) 82 (>60 ml/min/1.73 sqM); Anion Gap 5 mmol/L; Blood Urea Nitrogen 16 mg/dL (9-20); Calcium 8.5 mg/dL (8.4-10.2); Carbon Dioxide 23 mmol/L (22-30); Chloride 111 mmol/L (98-107); Glucose 281 mg/dL (74-99); Non-African American GFR(CKD) 71 (>60 ml/min/1.73 sqM); Potassium 4.2 mmol/L (3.5-5.1); Sodium 139 mmol/L (137-145)
[2024-12-27] MEDS: VANCOMYCIN 1,500 MG in SODIUM CHLORIDE 0.9% 500 ML 500 ML IVPB SCH (05:21)
[2024-12-27 06:16] LABS: Glucose,Whole Blood 293 mg/dL (70-110)
[2024-12-27 08:17] VITALS: BP 165/79; PULSE 67; TEMP 98.3
[2024-12-27 11:37] LABS: Glucose,Whole Blood 223 mg/dL (70-110)
[2024-12-27] MEDS: INSULIN LISPRO (HumaLOG) 100 UNIT/ML 10 mL VL SQ SCH (12:21)
--- NOTE | 2024-12-27 13:11 | P.PN ---
Subjective Progress Note Date: 12/27/24 Principal diagnosis: Scrotal abscess The patient is hospitalized with a left scrotal abscess, which began draining spontaneously prior to the time of admission. He underwent a formal I&D on December 26 to be sure that the abscess was adequately drained. At that time, it was determined that he had a small abscess cavity which did not track deeply. He currently denies pain. Objective - Vital Signs Vital signs: Vital Signs Temp 97.6 F 12/27/24 02:00 Pulse 74 12/27/24 02:00 Resp 18 12/27/24 02:00 BP 186/83 12/27/24 02:00 Pulse Ox 96 12/27/24 02:00 FiO2 Intake & Output 12/26/24 12/26/24 12/27/24 06:59 18:59 06:59 Intake Total 100 Balance 100 Intake: Oral 100 Other: Voiding Method Toilet Toilet # Voids 1 3 2 # Bowel Movements 2 - Constitutional General appearance: Present: average body habitus, cooperative, no acute distress - Genitourinary Genitourinary Comment(s): Normal phallus. Normal testes. Scrotal edema has essentially resolved. There is minimal drainage, mostly sanguinous. No cellulitis or fluctuance. - Psychiatric Psychiatric: Present: A&O x's 3 - Labs CBC & Chem 7: 12/26/24 06:07 12/27/24 04:17 Labs: Abnormal Lab Results - Last 24 Hours (Table) 12/26/24 12/26/24 12/26/24 Range/Units 11:40 16:34 20:45 Chloride (98-107) mmol/L Glucose (74-99) mg/dL POC Glucose (mg/dL) 161 H 209 H 311 H (70-110) mg/dL 12/27/24 12/27/24 Range/Units 04:17 06:15 Chloride 111 H (98-107) mmol/L Glucose 281 H (74-99) mg/dL POC Glucose (mg/dL) 293 H (70-110) mg/dL Microbiology - Last 24 Hours (Table) 12/24/24 18:32 Gram Stain - Final Groin Wound Culture - Final 12/24/24 12:48 Blood Culture - Preliminary Blood 12/24/24 18:32 Anaerobic Culture - Preliminary Groin 12/24/24 12:48 Anaerobic Culture - Preliminary Groin Peptococcus anaerobius Prevotella species 12/24/24 12:48 Gram Stain - Final Groin Wound Culture - Final Assessment and Plan (1) Scrotal abscess Current Visit: Yes Status: Acute Code(s): N49.2 - INFLAMMATORY DISORDERS OF SCROTUM SNOMED Code(s): 15762797 Plan: From a urologic standpoint, the patient may be discharged home on appropriate oral antibiotics and follow-up with me as an outpatient.
--- NOTE | 2024-12-27 14:25 | P.DS ---
Providers Date of admission: 12/24/24 17:49 Attending physician: Az Strong Consults: 12/24/24 16:27 Consult Physician Routine Consulting Provider: Joe Fuchs Consult Reason/Comments: cellulitis Do you want consulting provider notified?: Yes 12/24/24 17:47 Consult Physician Routine Consulting Provider: Jeremiah Polo Consult Reason/Comments: scrotal abscess Do you want consulting provider notified?: Yes Primary care physician: Delmer Fischer [facility] Hospital Course: Discharge Diagnosis: Scrotal abscess status post I&D 12/26/2024 Acute diarrhea, likely antibiotic induced, C. difficile negative Type II DM CKD stage II Hypertension Gout Gastritis Dyslipidemia BLAS, resolved Hospital Course: 69 year old M with PMH of DM, CKD, HTN, Gout, Gastritis, HLD presents to the ED. He reports scrotal "bubble" that started 1 week ago. The lump progressively grew to the size of his thumb over the past week. He did go to urgent care and received Bactrim which did not help his symptoms. He also underwent an US which showed concerns for cellulitis. Today, it became an open wound draining purulent discharge which prompted him to go to the ED. He denies any fever or chills, nausea or vomiting, cough, chest pain, shortness of breath, palpitations, changes in urination or bowel habits. In the ED he underwent extensive evaluation. BP 155/73, HR 85, T 98F, RR 18, 98% on RA. Labs significant for WBC 10.02, RBC 4.25, Cl 111, BUN 34, Cr 1.52, glu 245, AST 14, CRP 6.5. UA 1+ protein and 4+ glucose. CT pelvis no acute findings. Patient is started on Vancomycin and Zosyn and admitted for further workup and management. ID switched Zosyn to Unasyn. Urology performed I&D on 12/26. 12/27 patient is stable for discharge from urology and ID standpoint, discussed with ID, patient will be discharged on 10 days of Amoxiclav. Patient to follow- up with ID, urology. Patient had 1 more episode of loose bowel movement the day of discharge, his C. difficile is negative, he will be continued on as needed loperamide. Of note, patient's blood pressure was elevated during this hospitalization, he states that his blood pressure at home is always around 120 over 70s and has been normal for the past 5 to 10 years, patient was recommended to keep a log of the daily blood pressure readings and discuss with his primary care physician. Patient seen and examined at bedside. Vital signs reviewed and stable. General: [nontoxic], [no distress], [appears at stated age] Derm: [warm], [dry] Head: [atraumatic], [normocephalic], [symmetric] Eyes: [EOMI], [no lid lag], [anicteric sclera] Mouth: [no lip lesion], [mucus membranes moist] Cardiovascular: [S1S2 reg], [no murmur] Lungs: [CTA bilateral], [no rhonchi, no rales] , [no accessory muscle use] Abdominal: [soft], [ nontender to palpation], [no guarding], [no appreciable organomegaly] Ext: [no gross muscle atrophy], [no edema], [no contractures] Neuro: [ CN II-XI grossly intact], [no focal neuro deficits] Psych: [Alert], [oriented], [appropriate affect] A total of 40 minutes of time were spent preparing this complex discharge summary. Patient was discharged on 12/27/2024. Patient Condition at Discharge: Stable Plan - Discharge Summary Discharge Rx Participant: No New Discharge Prescriptions: New Amoxic-Pot Clav 875-125Mg [Augmentin 875-125] 1 tab PO BID 10 Days #20 tab Loperamide [Imodium] 2 mg PO QID PRN #30 cap PRN Reason: Diarrhea Continue Insulin Glargine,Hum.rec.anlog [Toujeo Solostar] 40 units SQ DAILY Metoprolol Tartrate 25 mg PO BID allopurinoL [Zyloprim] 200 mg PO HS Acetaminophen [Tylenol Arthritis] 1,300 mg PO BID Dapagliflozin Propanediol [Farxiga] 10 mg PO HS Evolocumab [Repatha Sureclick] 140 mg SQ Q30D Cholecalciferol (Vitamin D3) [Vitamin D3 (125 MCG = 5,000 IU)] 125 mcg PO DAILY Losartan Potassium 100 mg PO DAILY Furosemide [Lasix] 40 mg PO DAILY Omeprazole 20 mg PO HS Tirzepatide [Mounjaro] 10 mg SQ TH Famotidine 20 mg PO HS Vit C/E/Zn/Coppr/Lutein/Zeaxan [Preservision Areds 2 Softgel] 1 cap PO BID Discontinued Sulfamethox-Tmp 800-160Mg [Bactrim DS 800-160 mg] 1 tab PO Q12HR Discharge Medication List Cholecalciferol (Vitamin D3) [Vitamin D3 (125 MCG = 5,000 IU)] 125 mcg PO DAILY 04/17/24 [History] Evolocumab [Repatha Sureclick] 140 mg SQ Q30D 04/17/24 [History] Furosemide [Lasix] 40 mg PO DAILY 04/17/24 [History] Insulin Glargine,Hum.rec.anlog [Toujeo Solostar] 40 units SQ DAILY 04/17/24 [History] Losartan Potassium 100 mg PO DAILY 04/17/24 [History] Metoprolol Tartrate 25 mg PO BID 04/17/24 [History] allopurinoL [Zyloprim] 200 mg PO HS 04/17/24 [History] Acetaminophen [Tylenol Arthritis] 1,300 mg PO BID 12/24/24 [History] Dapagliflozin Propanediol [Farxiga] 10 mg PO HS 12/24/24 [History] Famotidine 20 mg PO HS 12/24/24 [History] Omeprazole 20 mg PO HS 12/24/24 [History] Tirzepatide [Mounjaro] 10 mg SQ TH 12/24/24 [History] Vit C/E/Zn/Coppr/Lutein/Zeaxan [Preservision Areds 2 Softgel] 1 cap PO BID 12/24/24 [History] Amoxic-Pot Clav 875-125Mg [Augmentin 875-125] 1 tab PO BID 10 Days #20 tab 12/27/24 [Rx] Loperamide [Imodium] 2 mg PO QID PRN #30 cap 12/27/24 [Rx] Follow up Appointment(s)/Referral(s): Jeremiah Polo MD [STAFF PHYSICIAN] - 2 Weeks Delmer Rodriguez MD [Primary Care Provider] - 1-2 days Joe Fuchs MD [STAFF PHYSICIAN] - 1 Week Activity/Diet/Wound Care/Special Instructions: As we discussed, follow-up with primary care physician, check your blood pressure daily, keep a log of the readings to discuss with your doctor. Follow-up with urology and infectious disease specialist. Discharge Disposition: HOME SELF-CARE
--- NOTE | 2024-12-27 17:05 | P.PN ---
Subjective Progress Note Date: 12/27/24 Principal diagnosis: Reason for follow-up is left scrotal abscess Patient is a 69-year-old male with a past medical history significant for diabetes mellitus hypertension stage III kidney disease presenting to the hospital for evaluation of left groin/scrotal area swelling and patient to be diagnosed with a left scrotal abscess prompting this consultation. On today's evaluation that is 12/27/2024,the patient denies any fever or any chills, patient is breathing comfortably on room air, the patient denies chest pain shortness of breath and no significant cough, patient denies abdominal pain, no nausea vomiting or diarrhea. Patient mention improvement to the left groin area and wants to go home. Patient did have creatinine 1.07 local culture with Streptococcus and Prevotella Objective - Vital Signs Vital signs: Vital Signs Temp 98.3 F 12/27/24 07:03 Pulse 67 12/27/24 07:03 Resp 18 12/27/24 07:03 BP 165/79 12/27/24 07:03 Pulse Ox 96 12/27/24 07:03 FiO2 Intake & Output 12/26/24 12/27/24 12/27/24 18:59 06:59 18:59 Intake Total 100 Balance 100 Intake: Oral 100 Other: Voiding Method Toilet # Voids 3 2 5 # Bowel Movements 2 2 - Exam GENERAL DESCRIPTION: An elderly male lying in bed in no distress RESPIRATORY SYSTEM: Unlabored breathing , decreased breath sounds at bases HEART: S1 S2 regular rate and rhythm , ABDOMEN: Soft , no tenderness EXTREMITIES: No edema feet - Labs CBC & Chem 7: 12/26/24 06:07 12/27/24 04:17 Labs: Abnormal Lab Results - Last 24 Hours (Table) 12/26/24 12/26/24 12/27/24 Range/Units 16:34 20:45 04:17 Chloride 111 H (98-107) mmol/L Glucose 281 H (74-99) mg/dL POC Glucose (mg/dL) 209 H 311 H (70-110) mg/dL 12/27/24 12/27/24 Range/Units 06:15 11:35 Chloride (98-107) mmol/L Glucose (74-99) mg/dL POC Glucose (mg/dL) 293 H 223 H (70-110) mg/dL Microbiology - Last 24 Hours (Table) 12/24/24 18:32 Gram Stain - Final Groin Wound Culture - Final 12/24/24 12:48 Blood Culture - Preliminary Blood 12/24/24 18:32 Anaerobic Culture - Preliminary Groin 12/24/24 12:48 Anaerobic Culture - Preliminary Groin Peptococcus anaerobius Prevotella species Assessment and Plan (1) Scrotal abscess Status: Acute Code(s): N49.2 - INFLAMMATORY DISORDERS OF SCROTUM SNOMED Code(s): 84646051 (2) Failure of outpatient treatment Status: Acute Code(s): Z78.9 - OTHER SPECIFIED HEALTH STATUS SNOMED Code(s): 396709037 (3) Elevated serum creatinine Status: Acute Code(s): R79.89 - OTHER SPECIFIED ABNORMAL FINDINGS OF BLOOD CHEMISTRY SNOMED Code(s): 588660320 Plan: 1patient presented to hospital with significant pain swelling and redness to the left scrotal area with spontaneous drainage of a foul-smelling material concerning for an abscess likely from gram-positive skin haylee gram-negative infection less likely but not excluded 2patient has been evaluated by urology planning for surgical drainage this afternoon 3culture obtained currently growing mostly anaerobes, patient is feeling better wants to go home we will give him a 10-day course of oral Augmentin prescription sent to the pharmacy and close outpatient follow-up Dictation was produced using [employer] dictation software. please excuse any grammatical, word or spelling errors. Time with Patient: Less than 30
[2024-12-27] MEDS ORDERED: VANCOMYCIN TROUGH DUE 1 EACH MISC MISCELLANE ONE (19:00)
== END 2024-12-27 14:44 | disposition home or self-care (01) | DRG 717 ==
LOC: EC 10:59 → 4SSUR 17:49
PROVIDERS: ADMIT Student in an Organized Health Care Education/Training Program; ATTEND Student in an Organized Health Care Education/Training Program
PROC: 0V950ZZ Drainage of Scrotum, Open Approach (ICD-10-PCS; principal; 2024-12-26)
DX: N49.2 Inflammatory disorders of scrotum (principal); K52.1 Toxic gastroenteritis and colitis; E11.22 Type 2 diabetes mellitus with diabetic chronic kidney disease; N18.30 Chronic kidney disease, stage 3 unspecified; I12.9 Hypertensive chronic kidney disease with stage 1 through stage 4 chronic kidney disease, or unspecified chronic kidney disease; N17.9 Acute kidney failure, unspecified; Z79.4 Long term (current) use of insulin; E78.5 Hyperlipidemia, unspecified; F17.200 Nicotine dependence, unspecified, uncomplicated; K29.70 Gastritis, unspecified, without bleeding; M10.9 Gout, unspecified; T36.95XA Adverse effect of unspecified systemic antibiotic, initial encounter; Z85.828 Personal history of other malignant neoplasm of skin; Z79.899 Other long term (current) drug therapy
CPT/HCPCS: 36415; 72193; 80048; 80053; 81001; 83605; 85025; 85027; 86140; 87040; 87070; 87075; 87205; 87324; 96361; 96365; 96366; 96375; 99285

== ENCOUNTER → 2024-12-24 | Outpatient (CLI) | payer MEDICARE ==
--- NOTE | 2024-12-24 08:19 | US ---
EXAMINATION TYPE: US scrotum with doppler. DATE OF EXAM: 12/24/2024 COMPARISON: NONE CLINICAL INDICATION: Male, 69 years old with history of N49.2 DISORDER OF SCROTUM; Redness/pain x 1 w te-moak. Patient noticed pus/blood when wiping area last night. TECHNIQUE: Grayscale, color Doppler and spectral Doppler imaging of the scrotum. FINDINGS: EXAM MEASUREMENTS: TESTICLES: Right Testicle: 3.2 x 2.8 x 1.9 cm Left Testicle: 3.5 x 2.8 x 1.8 cm. 2 Tiny hyperechoic foci seen within testicle, larger area measu res .08 cm. EPIDIDYMIS HEAD: Right Epididymis: 1.0 x 1.4 x 0.9 cm Left Epididymis: 0.7 x 0.9 x 1.0 cm. *Anechoic area seen within: 0.5 x 06 x 0.7 compatible with tubu lar ectasia of the epididymis. Doppler performed to assess for testicular vascularity; bilateral color flow and spectral waveforms a re seen. There is no evidence of testicular torsion. Presence of hydroceles: Physiologic fluid bilaterally Presence of varicoceles: Prominent vessels lateral to left testicle measure up to 3 mm. Skin appears thick measuring 1.1 cm. Scanned inferior ML scrotum at patient's area of concern/pain, no abnormality seen by ultrasound at t his time. IMPRESSION: 1. Thickened edematous skin without evidence for organizing fluid collection. Correlate for sinusiti s. 2. No evidence for intratesticular mass. 3. Appropriate arterial and venous spectral waveforms to the testes. 4. Left varicocele. 5. Tubular ectasia of the left epididymis [facility], , 12/24/2024 8:16 AM
== END | disposition home or self-care (01) ==
LOC: RADUSWWP 07:08
PROVIDERS: ATTEND Emergency Medicine
DX: N49.2 Inflammatory disorders of scrotum (principal); N50.89 Other specified disorders of the male genital organs; I86.1 Scrotal varices; R60.0 Localized edema
CPT/HCPCS: 76870; 93975